=== PATIENT | male | born 1990 | race African-American/Black ===

== ENCOUNTER 2020-04-12 10:32 | Inpatient (IN) | payer OTHER, SELFPAY ==
[2020-04-12] VITALS (7 sets, daily range): BP systolic 137–154; BP diastolic 71–86; PULSE 66–87; RESP 14–17; TEMP 36.7–37; O2SAT 97–100; BMI 33.0
--- NOTE | 2020-04-12 11:46 | ED_ITS ---
HPI - Dizziness General Chief Complaint: Dizziness Stated Complaint: dizziness Time Seen by Provider: 04/12/20 11:41 History of Present Illness HPI Narrative: Patient complains of dizziness, feeling slightly off balance for several days, and feeling right-sided numbness and tingling for over a week, and double vision and feeling off balance for 3 days as well as feeling some weakness in his right arm for 2-3 days The double vision is relieved by closing 1 eye right arm is not as strong as normal no fever no chills The feeling he describes as dizziness is a sense of movement which he says is similar possibly to a prior episode of vertigo many many years ago as a teenager, he feels like his balance is not quite right The right arm weakness 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 and usually uses that is his dominant arm and it is hard to hold things and lift things with his right arm The tingling and numbness started many weeks ago on the left side with his left foot and went up his left leg and then went away he never saw a doctor about this and then things were normal and then about 10 days to 2 weeks ago he started after tingling initially in his right foot and now he has tingling and a numb feeling in both right foot and right arm and for past several days he feels his right arm is weaker than normal He has also noted over the last several days that his blood pressure has been elevated over 160 He has had no headache, no difficulty speaking or understanding, no fever no chills no vomiting no nausea Related Data Home Medications Medication Instructions Recorded Confirmed No Known Home Meds 04/12/20 04/12/20 Allergies Allergy/AdvReac Type Severity Reaction Status Date / Time No Known Allergies Allergy Verified 04/12/20 11:44 Review of Systems Review of Systems: Positive for dizziness double vision and numbness Negatives are no fever no chills no headache no chest pain no palpitations no nausea no vomiting no diarrhea no anorexia no rash no confusion no urinary symptoms Yes all other systems are reviewed and are negative [facility] Past Medical History Attestation statement: The following information was validated with the patient. 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 Social History Social History Alcohol intake: never Smoking Status: Never smoker Use of substances other than those prescribed or required for medical reasons: No Advance Directives: No Advance Directives Information Provided: No Physical Exam Vital Signs: Vital Signs: Last Vital Signs Temp 98.1 F 04/12/20 10:37 Pulse 68 04/12/20 14:28 Resp 17 04/12/20 14:28 BP 152/86 H 04/12/20 14:28 Pulse Ox 98 04/12/20 14:28 Body Mass Index 33.0 Patient is A&O x3, no acute distress cooperative and comp Head is normocephalic atraumatic, the ears are clear and normal tympanic membranes The pupils are equal round and reactive to light Extraocular motions are intact, when vision is checked with both eyes he sees 2 fingers but when it was checked with either eye individually he only sees 1 finger Pharynx is clear well-hydrated The neck is supple Chest is clear to auscultation bilaterally, no respiratory distress The heart no murmur The abdomen is soft nontender Extremities full range of motion x4 Neuro exam patient's speech and interaction is normal, I did not detect any gaze palsy or nystagmus, finger to nose was normal, gait was away wide gait and slow but he was able to ambulate Motor his arm strength on the right arm when flexing the biceps up was 4/5 as compared to the left which was 5/5 of her motor strength exam was normal, sen sation was intact and symmetrical on both sides Course Course Course Narrative: Case was discussed with neurologist who was concerned for MS and advised imaging of both head and neck with and without IV contrast He had on his exam detected a gaze palsy in the left eye on out romano gaze Patient was admitted to medical service for further evaluation Head CT without contrast was negative, and MRIs were pending with the medical service and will be followed after admission MDM - Dizziness Lab Data Attestation: I reviewed the patient's lab results. Result diagrams: 04/12/20 12:31 04/12/20 12:31 Labs: Lab Results 04/12/20 04/12/20 04/12/20 Range/Units 11:53 12:31 12:31 WBC 5.4 (4.8-10.8) X10*3/uL RBC 4.51 L (4.60-5.80) X10*6/uL Hgb 14.0 (14.0-18.0) g/dl Hct 41.3 L (42-52) % MCV 91.6 (80-98) fL MCH 31.0 (27.0-33.0) pg MCHC 33.9 (31.0-36.0) g/dl RDW 13.0 (11.0-16.0) % Plt Count 176 (160-400) X10*3/uL MPV 10.5 (9.4-12.4) fL Immature Gran % (Auto) 0.2 (0.0-0.4) % Neut % (Auto) 56.1 (45-73) % Lymph % (Auto) 32.5 (20-40) % [place] % (Auto) 9.7 (2-11) % Eos % (Auto) 1.1 (0-4) % Baso % (Auto) 0.4 (0-2) % Lymph # (Auto) 1.7 (1.2-4.9) X10*3/uL [place] # (Auto) 0.5 (0.1-1.2) X10*3/uL Eos # (Auto) 0.1 (0.0-0.4) X10*3/uL Baso # (Auto) 0.0 (0.0-0.2) X10*3/uL Abs Immat Gran (auto) 0.01 (0.00-0.03) X10*3/uL Absolute Neuts (auto) 3.0 (2.0-8.3) X10*3/uL Absolute Nucleated RBC 0.000 (0.0-0.012) X10*3/uL Nucleated RBC % (auto) 0.0 (0.0-0.2) /100WBC PT 13.4 H (10.8-13.0) SEC INR 1.1 (0.9-1.1) Sodium (135-145) mmol/L Potassium (3.3-5.1) mmol/l Chloride (96-108) mmol/L Carbon Dioxide (22-29) mmol/L Anion Gap (12-20) BUN (9-16) mg/dL Creatinine (0.5-1.4) mg/dL Estim Creat Clear Calc Estimated GFR POC Glucose 108 (60-115) mg/dL Random Glucose (60-115) mg/dL Calcium (8.4-10.2) mg/dL Total Bilirubin (0.0-1.0) mg/dL AST (5-37) U/L ALT (0-40) U/L Alkaline Phosphatase (39-117) U/L Total Protein (6.5-8.0) g/dL Albumin (3.5-5.0) g/dL 12/18/20 Range/Units 12:31 WBC (4.8-10.8) X10*3/uL RBC (4.60-5.80) X10*6/uL Hgb (14.0-18.0) g/dl Hct (42-52) % MCV (80-98) fL MCH (27.0-33.0) pg MCHC (31.0-36.0) g/dl RDW (11.0-16.0) % Plt Count (160-400) X10*3/uL MPV (9.4-12.4) fL Immature Gran % (Auto) (0.0-0.4) % Neut % (Auto) (45-73) % Lymph % (Auto) (20-40) % [place] % (Auto) (2-11) % Eos % (Auto) (0-4) % Baso % (Auto) (0-2) % Lymph # (Auto) (1.2-4.9) X10*3/uL [place] # (Auto) (0.1-1.2) X10*3/uL Eos # (Auto) (0.0-0.4) X10*3/uL Baso # (Auto) (0.0-0.2) X10*3/uL Abs Immat Gran (auto) (0.00-0.03) X10*3/uL Absolute Neuts (auto) (2.0-8.3) X10*3/uL Absolute Nucleated RBC (0.0-0.012) X10*3/uL Nucleated RBC % (auto) (0.0-0.2) /100WBC PT (10.8-13.0) SEC INR (0.9-1.1) Sodium 139 (135-145) mmol/L Potassium 3.9 (3.3-5.1) mmol/l Chloride 105 (96-108) mmol/L Carbon Dioxide 26 (22-29) mmol/L Anion Gap 12 (12-20) BUN 16 (9-16) mg/dL Creatinine 1.04 (0.5-1.4) mg/dL Estim Creat Clear Calc 124.2 Estimated GFR > 60 POC Glucose (60-115) mg/dL Random Glucose 77 (60-115) mg/dL Calcium 9.4 (8.4-10.2) mg/dL Total Bilirubin 0.8 (0.0-1.0) mg/dL AST 19 (5-37) U/L ALT 21 (0-40) U/L Alkaline Phosphatase 107 (39-117) U/L Total Protein 7.7 (6.5-8.0) g/dL Albumin 4.5 (3.5-5.0) g/dL ECG Data Interpretation: EKG was normal sinus rhythm with a rate of 74 [place] was normal QRS was 100 QT was normal, no acute ST changes no acute ischemic changes Pacemaker model: ECG was normal sinus rhythm Discharge Plan Discharge Clinical Impression: Dizziness, Double vision Patient Disposition: Admitted As Inpatient
[2020-04-12 11:55] LABS: Glucose, Whole Blood 108 mg/dL (60-115)
--- NOTE | 2020-04-12 12:20 | ECG_ITS ---
Test Reason : WEAKNESS Blood Pressure : / mmHG Vent. Rate : 074 BPM Atrial Rate : 074 BPM P-R Int : 194 ms QRS Dur : 100 ms QT Int : 366 ms P-R-T Axes : 017 083 033 degrees QTc Int : 406 ms Normal sinus rhythm Normal ECG No previous ECGs available Referred By: Jamil Boateng Electronically Signed By:Torsten Srivastava
--- NOTE | 2020-04-12 12:20 | CT_ITS ---
EXAMINATION: CT HEAD WITHOUT CONTRAST CLINICAL INFORMATION: Dizziness COMPARISON: None TECHNIQUE: Contiguous axial imaging was performed from the skull base to vertex without intravenous administration of contrast. This CT examination was performed using dose optimization techniques as appropriate, variously including the following: *Automated exposure control *Adjustment of mA and/or kV according to patient size (this includes techniques or standardized protocols for targeted exams where dose is matched to indication/reason for exam; i.e. extremities or head) *Use of iterative reconstruction technique DLP: 740 mGy-cm FINDINGS: There is no evidence of acute intracranial hemorrhage or territorial infarction. No abnormal mass effect or midline shift is seen. Cam to white matter differentiation is well preserved. No extra-axial fluid collections are identified. The ventricles are normal in size. There is no abnormal attenuation within the brain parenchyma. The osseous structures and soft tissues are normal. The mastoid air cells and visualized portions of the paranasal sinuses are well aerated. CT/CT head/brain wo con IMPRESSION: Unremarkable exam.
[2020-04-12 12:49] LABS: MANUAL DIFF FLAG NO
[2020-04-12 12:54] LABS: Basophils Percent Auto 0.4 % (0-2); Eosinophils Absolute Auto 0.1 X10*3/uL (0.0-0.4); Eosinophils Percent Auto 1.1 % (0-4); Hematocrit 41.3 % (42-52); Imm Gran Abs Auto 0.01 X10*3/uL (0.00-0.03); Imm Gran Pct Auto 0.2 % (0.0-0.4); Lymphocytes Absolute Auto 1.7 X10*3/uL (1.2-4.9); Lymphocytes Percent Auto 32.5 % (20-40); Mean Corpuscular HGB Conc 33.9 g/dl (31.0-36.0); Mean Corpuscular Volume 91.6 fL (80-98); Mean Platelet Volume 10.5 fL (9.4-12.4); Monocytes Absolute Auto 0.5 X10*3/uL (0.1-1.2); Monocytes Percent Auto 9.7 % (2-11); Neutrophils Percent Auto 56.1 % (45-73); Platelet Count 176 X10*3/uL (160-400); Red Blood Count 4.51 X10*6/uL (4.60-5.80); White Blood Count 5.4 X10*3/uL (4.8-10.8)
[2020-04-12 13:08] LABS: INTERNATIONAL NORM RATIO 1.1 (0.9-1.1); Prothrombin Time 13.4 SEC (10.8-13.0)
[2020-04-12 13:13] LABS: Alanine Aminotransferase 21 U/L (0-40); Albumin Level 4.5 g/dL (3.5-5.0); Alkaline Phosphatase 107 U/L (39-117); Anion Gap 12 (12-20); Aspartate Amino Transferase 19 U/L (5-37); Bilirubin Total 0.8 mg/dL (0.0-1.0); Blood Urea Nitrogen 16 mg/dL (9-16); Calcium 9.4 mg/dL (8.4-10.2); Carbon Dioxide 26 mmol/L (22-29); Chloride 105 mmol/L (96-108); Creatinine Clr Calc Pharmacy 124.2; Estimated Glomerular Filt Rate > 60; Glucose Random 77 mg/dL (60-115); Potassium 3.9 mmol/l (3.3-5.1); Sodium 139 mmol/L (135-145); Total Protein 7.7 g/dL (6.5-8.0)
--- NOTE | 2020-04-12 14:12 | MR_ITS ---
EXAMINATION: MR BRAIN AND CERVICAL SPINE WITHOUT AND WITH CONTRAST CLINICAL INFORMATION: Double vision. Off balance. Right arm weakness. COMPARISON: Head CT performed earlier today. TECHNIQUE: Multiplanar multisequence MRI of the brain and cervical spine was performed without and with contrast. A total of 10 mL Gadavist was intravenously administered. FINDINGS: Brain MRI: A small focus of diffusion restriction is seen within the left paramedian lorrie involving the basis pontis and the anterior aspect of the tegmentum. No additional diffusion restriction is seen elsewhere in the brain parenchyma. No additional acute or chronic infarction is seen. There is no hemorrhage on the GRE sequence. Multiple foci of ovoid T2 hyperintensity are seen within the periventricular and deep cerebral white matter and along the callosal septal interface typical of demyelinating plaques. T2 hyperintense plaques are also present within the right aspect of the brachium pontis and left cerebellar deep white matter. No abnormal intracranial enhancement is seen. The ventricles are normal in size and configuration without hydrocephalus or unexpected volume loss. The major arterial flow voids are preserved at the skull base. The orbital contents are unremarkable. Cervical spine MRI: There is a 1.2 cm focus of mildly expansile T2 hyperintense abnormality within the cervical cord centered at the C2-C3 level and demonstrates avid peripheral enhancement. An additional demyelinating plaque is seen within the left posterolateral cord at the C6-C7 level. The cervical vertebral bodies maintain normal heights and alignment. No disc height loss is seen. C3-C4: Left paracentral/foraminal extrusion causing compression of the left aspect of the ventral cord. No significant neural foraminal stenosis. No additional significant spondylosis is noted. The extraspinal soft tissues are within normal limits. MR/MR head/brain wo/w con IMPRESSION: Brain MRI: Multiple foci of T2 hyperintensity are seen within the supratentorial and infratentorial white matter compatible with demyelinating plaques. A focus of restricted diffusion is seen within the left paramedian lorrie. This finding could represent an acute/active demyelinating plaque however no associated enhancement is seen. A param[facility] territory infarction is also in the differential and difficult to exclude on an imaging basis. Cervical spine MRI: An expansile T2 hyperintense enhancing plaque is seen in the cervical cord at the C2-C3 level compatible with acute/active demyelination. A small nonenhancing plaque is seen in the left dorsal lateral cord at the C6-C7 level. At C3-C4 there is left paracentral/foraminal extrusion causing compression of the left aspect of the ventral cord but without definite intramedullary edema. This critical result was discussed with GEORGIA Medeiros on 04/12/2020 7:32 PM, and it was ascertained that the content and urgency of the report was understood at the time of direct communication.
--- NOTE | 2020-04-12 14:23 | PC.NURSE ---
MRI SCREENING FORM CONSENT FAXED TO MRI.
--- NOTE | 2020-04-12 15:50 | MR_ITS ---
EXAMINATION: MR BRAIN AND CERVICAL SPINE WITHOUT AND WITH CONTRAST CLINICAL INFORMATION: Double vision. Off balance. Right arm weakness. COMPARISON: Head CT performed earlier today. TECHNIQUE: Multiplanar multisequence MRI of the brain and cervical spine was performed without and with contrast. A total of 10 mL Gadavist was intravenously administered. FINDINGS: Brain MRI: A small focus of diffusion restriction is seen within the left paramedian lorrie involving the basis pontis and the anterior aspect of the tegmentum. No additional diffusion restriction is seen elsewhere in the brain parenchyma. No additional acute or chronic infarction is seen. There is no hemorrhage on the GRE sequence. Multiple foci of ovoid T2 hyperintensity are seen within the periventricular and deep cerebral white matter and along the callosal septal interface typical of demyelinating plaques. T2 hyperintense plaques are also present within the right aspect of the brachium pontis and left cerebellar deep white matter. No abnormal intracranial enhancement is seen. The ventricles are normal in size and configuration without hydrocephalus or unexpected volume loss. The major arterial flow voids are preserved at the skull base. The orbital contents are unremarkable. Cervical spine MRI: There is a 1.2 cm focus of mildly expansile T2 hyperintense abnormality within the cervical cord centered at the C2-C3 level and demonstrates avid peripheral enhancement. An additional demyelinating plaque is seen within the left posterolateral cord at the C6-C7 level. The cervical vertebral bodies maintain normal heights and alignment. No disc height loss is seen. C3-C4: Left paracentral/foraminal extrusion causing compression of the left aspect of the ventral cord. No significant neural foraminal stenosis. No additional significant spondylosis is noted. The extraspinal soft tissues are within normal limits. MR/MR cervical spine wo/w con IMPRESSION: Brain MRI: Multiple foci of T2 hyperintensity are seen within the supratentorial and infratentorial white matter compatible with demyelinating plaques. A focus of restricted diffusion is seen within the left paramedian lorrie. This finding could represent an acute/active demyelinating plaque however no associated enhancement is seen. A paramedian [facility] nurse practitioner territory infarction is also in the differential and difficult to exclude on an imaging basis. Cervical spine MRI: An expansile T2 hyperintense enhancing plaque is seen in the cervical cord at the C2-C3 level compatible with acute/active demyelination. A small nonenhancing plaque is seen in the left dorsal lateral cord at the C6-C7 level. At C3-C4 there is left paracentral/foraminal extrusion causing compression of the left aspect of the ventral cord but without definite intramedullary edema. This critical result was discussed with GEORGIA Medeiros on 04/12/2020 7:32 PM, and it was ascertained that the content and urgency of the report was understood at the time of direct communication.
--- NOTE | 2020-04-12 16:04 | PC.NURSE ---
DR MCDUFFIE AT BEDSIDE. PT AWARE OF PLAN FOR ADMISSION AND MRI TESTING TO RULE OUT MS.
--- NOTE | 2020-04-12 16:17 | PM.NEUROCN ---
History of Present Illness Data of Consult Service Date: 04/12/20 Primary Care Provider: None Physician HPI Reason for consult: Numbness in the lower part of the body starting 2 weeks ago This is a previously healthy 29-year-old man who started noticing some numbness starting the left foot about 2 weeks ago that gradually got worse and progressed up the left upper extremity up to the groin and then also started a few days later in the right leg and now he has numbness as if he is asleep till his abdomen around the bellybutton. In the last week he is also noted that his right hand is numb and he is having trouble with fine motor skills in the right hand. In the last 2 days he is noted some double vision on looking to the left and some balance problems. No bladder control problems. When he was a teenager he had what was diagnosed as vertigo of for a few days. Review of Systems Eyes: Eyes: Reports no additional eye complaints ENT: Reports system reviewed and no additional complaints, except as documented and Reports Normal hearing present Cardiovascular: Cardiovascular: Reports no additional cardiovascular complaints Respiratory: Respiratory: Reports no additional respiratory complaints Gastrointestinal: Gastrointestinal: Reports no additional gastrointestinal complaints Genitourinary: Genitourinary: Reports no additional male genitourinary complaints Musculoskeletal: Musculoskeletal: Reports no additional musculoskeletal complaints Integumentary/Breasts: Skin/Breast: Reports system reviewed and no additional complaints, except as docu Neurologic: Reports as per HPI and Reports Normal hearing present Psychiatric: Psychiatric: Reports as per HPI Endocrine: Endocrine: Reports no additional endocrine complaints Hematologic/Lymphatic: Hematologic/Lymphatic: Reports no additional hematologic/lymphatic complaints Allergic/Immunologic: Allergic/Immunologic: Reports no additional allergic/immunologic complaints [facility] Social History Social History Alcohol intake: never Smoking Status: Never smoker Use of substances other than those prescribed or required for medical reasons: No Advance Directives: No Advance Directives Information Provided: No Meds Allergies Allergy/AdvReac Type Severity Reaction Status Date / Time No Known Allergies Allergy Verified 04/12/20 11:44 Home Medications Medication Instructions Recorded Confirmed Type No Known Home Meds 04/12/20 04/12/20 History Physical Exam Vital Signs: Vital Signs: Last Vital Signs Temp 98.1 F 04/12/20 10:37 Pulse 68 04/12/20 14:28 Resp 17 04/12/20 14:28 BP 152/86 H 04/12/20 14:28 Pulse Ox 98 04/12/20 14:28 Body Mass Index 33.0 Const: General: cooperative, comfortable, no acute distress, well developed, alert and awake Nutritional Appearance: well nourished Orientation/consciousness: oriented to person, oriented to place and oriented to time Limitations: no limitations HENMT: Head: Yes normal to inspection, Yes normocephalic and Yes atraumatic Ears: hearing grossly normal bilaterally General nose exam: Normal external nose present Face and sinus: Yes normal facial exam Mouth: Normal oral and palatal mucosa present Eyes: General: appearance normal, both eyes and all related structures Visual Patton: normal visual patton by confrontation Alignment and Position: alignment normal Periorbital: periorbital findings normal Eyelids: Yes eyelids normal Conjunctivae: conjunctivae normal Sclerae: sclerae normal Corneas: corneas normal Pupils: Equal, round and reactive pupils present and Pupil accommodation reflex normal EOM: EOMs intact bilaterally Direct Ophthalmoscopy: normal light reflex Neck: Neck: Yes normal visual inspection, Yes full ROM and Yes no meningeal signs Thyroid: Thyroid normal Carotids: normal carotid upstroke and bounding pulses Chest: Chest palpation & inspection: normal inspection of the chest Resp: Effort & Inspection: normal respiratory effort Auscultation: clear to auscultation bilaterally Cardio: Rate: regular rate Rhythm: regular rhythm Heart sounds: S1 normal heart sound present and S2 normal heart sound present Peripheral pulses: Peripheral pulses 2+ throughout GI: Inspection: Yes normal to inspection Percussion: Yes normal to percussion Auscultation: normal bowel sounds Rectal Exam - Male: Yes deferred Back/Spine/Pelvis: Cervical Spine: normal cervical lordosis and cervical ROM normal Thoracic/Lumbar Spine: thoracic and lumbar spine normal to inspection Skin: General skin exam: no rashes or lesions noted Neuro: Other: He has diplopia on left lateral gaze with partial internuclear ophthalmoplegia with restriction of left eye abduction. There is slight pronation drift of the right upper extremity with weakness of the right deltoid. There is slight decrease in finger tapping frequency with the right hand. He has slight right-sided hyperreflexia General: oriented to person, oriented to place, oriented to time, gait normal, tone normal, moves all extremities, Normal light touch and pain sensation, no meningeal signs, no focal motor deficits, CN's II-XI intact bilaterally, normal sensation to monofilament and deep tendon reflexes 2+ bilaterally Cranial nerves: Yes Equal, round and reactive pupils present, Yes Nystagmus not present, Yes Normal facial strength present, Yes Midline tongue present, Yes Normal gag reflex present, Yes Symmetric palate elevation present, Yes Normal hearing present and Yes Ability to bilaterally rotate head present Cognition (Neuro): normal cognition Speech: Other speech findings present (Neuro) Gait exam (Neuro): Normal gait present Motor exam (neuro): no tremor noted, no asterixis, Motor fasciculations not present, Normal motor muscle tone present throughout and Motor abnormalities not present Sensory Exam: Bilaterally intact graphesthesia Deep tendon reflexes (DTR's): Right triceps reflex intensity grade: 2+, Left triceps reflex intensity grade: 2+, Rt Biceps (C5, C6): 2+, Left biceps reflex intensity grade: 1+, Right brachioradialis reflex intensity grade: 2+, Left brachioradialis reflex intensity grade: 1+, Right patellar reflex intensity grade: 2+, Left patellar reflex intensity grade: 2+, Right ankle reflex intensity grade: 2+ and Left ankle reflex intensity grade: 2+ Plantar Reflex Responses: downgoing: right, left and bilateral Coordination: [id number] test normal, [id number] test normal, tandem gait normal and Romberg test negative Pupils: Normal pupillary reactivity/response: bilateral Extrem: General: Yes normal to inspection, Yes normal exam except as noted and Yes no pedal edema Psych: Appearance: grossly normal Mental Status: mental status grossly normal Speech and movement: Normal speech and movement present and Clear speech present Affect: normal affect Attitude: cooperative Thought process: Normal thought process present Results Labs CBC & Chem 7: 18 12:31 1820 12:31 Labs: Short CBC 04/12/20 Range/Units 12:31 WBC 5.4 (4.8-10.8) X10*3/uL Hgb 14.0 (14.0-18.0) g/dl Hct 41.3 L (42-52) % Plt Count 176 (160-400) X10*3/uL BMP 18 12:31 Sodium 139 Potassium 3.9 Chloride 105 Carbon Dioxide 26 BUN 16 Creatinine 1.04 Calcium 9.4 Liver Function 04/12/20 Range/Units 12:31 Total Bilirubin 0.8 (0.0-1.0) mg/dL AST 19 (5-37) U/L ALT 21 (0-40) U/L Alkaline Phosphatase 107 (39-117) U/L Albumin 4.5 (3.5-5.0) g/dL Assessment and Plan (1) Multiple sclerosis of cord: Status: Acute MRI of the brain and cervical spine with and without gadolinium. If positive, start IV Solu-Medrol 1 g a day for 5 days. Further recommendation for disease modifying therapies for MS to follow (2) Multiple sclerosis involving brain stem: Status: Acute
--- NOTE | 2020-04-12 17:28 | PC.NURSE ---
PT IN MRI.
--- NOTE | 2020-04-12 19:02 | PC.NURSE ---
PT STILL IN [facility].
--- NOTE | 2020-04-12 19:25 | PC.NURSE ---
HOSPITALIST AT BEDSIDE FOR ADMISSION.
--- NOTE | 2020-04-12 19:33 | PM.IMHP ---
History of Present Illness Date of Service: 04/12/20 <GEORGIA Hernandez - Last Filed: 04/12/20 19:59> Chief Complaint: Numbness, difficulty ambulating <GEORGIA Hernandez - Last Filed: 04/12/20 19:59> This is a 29-year-old healthy male who presents to the emergency department with multiple complaints. Approximately 3 weeks ago he noticed numbness starting his left leg. This progressively moved up his left extremity to his abdomen. He describes this as a tingling feeling like his extremity is asleep. This progressed to his right upper lower extremity. He reports clumsiness using his right hand. Insert reports double vision when looking to the left side. Due to be numb feeling in his leg he reports difficulty with ambulating. He has never had symptoms similar to this in the past. In the emergency department brain CT was unremarkable. Was evaluated by the neurologist who was concerned for possible multiple sclerosis. An MRI of brain and cervical spine were ordered and results are pending at this time. Patient's lab work was unremarkable. <GEORGIA Hernandez - Last Filed: 04/12/20 19:59> Review of Systems Review of Systems: Yes all other systems are reviewed and are negative <GEORGIA Hernandez Last Filed: 04/12/20 19:59> Constitutional: Constitutional: Denies chills and Denies fever(s) <GEORGIA Hernandez Last Filed: 04/12/20 19:59> ENT: Reports Normal hearing present <GEORGIA Hernandez Last Filed: 04/12/20 19:59> Cardiovascular: Cardiovascular: Denies chest pain <GEORGIA Hernandez Last Filed: 04/12/20 19:59> Respiratory: Respiratory: Denies cough <GEORGIA Hernandez Last Filed: 04/12/20 19:59> Gastrointestinal: Gastrointestinal: Denies abdominal pain <GEORGIA Hernandez Last Filed: 04/12/20 19:59> Neurologic: Reports as per HPI and Reports Normal hearing present <GEORGIA Hernandez Last Filed: 04/12/20 19:59> [facility] Functional capacity: independent ambulation <GEORGIA Hernandez - Last Filed: 04/12/20 19:59> Pertinent family history: No history of multiple sclerosis Mother has history of diabetes <GEORGIA Hernandez - Last Filed: 04/12/20 19:59> Family history: reviewed and not pertinent <GEORGIA Hernandez - Last Filed: 04/12/20 19:59> Surgical History: Surgical History (Updated 04/12/20 @ 19:40 by GEORGIA Hernandez) No history of previous surgery <GEORGIA Hernandez - Last Filed: 04/12/20 19:59> Social History: Social History Alcohol intake: never Smoking Status: Never smoker Use of substances other than those prescribed or required for medical reasons: No Advance Directives: No Advance Directives Information Provided: No <GEORGIA Hernandez - Last Filed: 04/12/20 19:59> Meds Allergies/Adverse reactions: Allergies Allergy/AdvReac Type Severity Reaction Status Date / Time No Known Allergies Allergy Verified 04/12/20 11:44 <GEORGIA Hernandez - Last Filed: 04/12/20 19:59> Home medications: Home Medications Medication Instructions Recorded Confirmed Type No Known Home Meds 04/12/20 04/12/20 History <GEORGIA Hernandez - Last Filed: 04/12/20 19:59> Physical Exam Vital Signs and Narrative: Vital Signs: Last Vital Signs Temp 98.5 F 04/12/20 19:12 Pulse 67 04/12/20 19:12 Resp 17 04/12/20 19:12 BP 141/85 H 04/12/20 19:12 Pulse Ox 100 04/12/20 19:12 Body Mass Index 33.0 <GEORGIA Hernandez - Last Filed: 04/12/20 19:59> Const: Nutritional Appearance: well nourished <GEORGIA Hernandez - Last Filed: 04/12/20 19:59> Orientation/consciousness: patient oriented x3 <GEORGIA Hernandez - Last Filed: 04/12/20 19:59> HENMT: Head: Yes normocephalic and Yes atraumatic <GEORGIA Hernandez - Last Filed: 04/12/20 19:59> Eyes: Sclerae: sclerae normal <GEORGIA Hernandez - Last Filed: 04/12/20 19:59> Pupils: Equal, round and reactive pupils present <GEORGIA Hernandez - Last Filed: 04/12/20 19:59> Chest: Chest palpation & inspection: normal inspection of the chest <GEORGIA Hernandez - Last Filed: 04/12/20 19:59> Resp: Effort & Inspection: normal respiratory effort and no respiratory distress <GEORGIA Hernandez - Last Filed: 04/12/20 19:59> Auscultation: clear to auscultation bilaterally <GEORGIA Hernandez - Last Filed: 04/12/20 19:59> Cardio: Rate: regular rate <GEORGIA Hernandez - Last Filed: 04/12/20 19:59> Rhythm: regular rhythm <GEORGIA Hernandez - Last Filed: 04/12/20 19:59> GI: Palpation (GI): Soft to palpation and nontender <GEORGIA Hernandez - Last Filed: 04/12/20 19:59> Skin: General skin exam: no rashes or lesions noted <GEORGIA Hernandez - Last Filed: 04/12/20 19:59> Neuro: General: patient oriented x3 <GEORGIA Hernandez - Last Filed: 04/12/20 19:59> Cranial nerves: Yes Equal, round and reactive pupils present, Yes Midline tongue present, Yes Normal hearing present and Yes Ability to bilaterally elevate shoulders present <GEORGIA Hernandez - Last Filed: 04/12/20 19:59> Cognition (Neuro): normal cognition <GEORGIA Hernandez - Last Filed: 04/12/20 19:59> Motor exam (neuro): no tremor noted <GEORGIA Hernandez - Last Filed: 04/12/20 19:59> Extrem: General: Yes normal to inspection <GEORGIA Hernandez - Last Filed: 04/12/20 19:59> Results Labs CBC and Chem 7: : 04/12/20 12:31 04/12/20 12:31 <GEORGIA Hernandez - Last Filed: 04/12/20 19:59> Labs: Laboratory Results - last 24 hr 04/12/20 04/12/20 04/12/20 11:53 12:31 12:31 MCV 91.6 MCH 31.0 MCHC 33.9 RDW 13.0 Plt Count 176 MPV 10.5 Immature Gran % (Auto) 0.2 Neut % (Auto) 56.1 Lymph % (Auto) 32.5 [place] % (Auto) 9.7 Eos % (Auto) 1.1 Baso % (Auto) 0.4 Lymph # (Auto) 1.7 [place] # (Auto) 0.5 Eos # (Auto) 0.1 Baso # (Auto) 0.0 Abs Immat Gran (auto) 0.01 Absolute Neuts (auto) 3.0 Absolute Nucleated RBC 0.000 Nucleated RBC % (auto) 0.0 PT 13.4 H INR 1.1 Anion Gap Estim Creat Clear Calc Estimated GFR POC Glucose 108 Random Glucose Calcium Total Bilirubin AST ALT Alkaline Phosphatase Total Protein Albumin 04/12/20 12:31 MCV MCH MCHC RDW Plt Count MPV Immature Gran % (Auto) Neut % (Auto) Lymph % (Auto) [place] % (Auto) Eos % (Auto) Baso % (Auto) Lymph # (Auto) [place] # (Auto) Eos # (Auto) Baso # (Auto) Abs Immat Gran (auto) Absolute Neuts (auto) Absolute Nucleated RBC Nucleated RBC % (auto) PT INR Anion Gap 12 Estim Creat Clear Calc 124.2 Estimated GFR > 60 POC Glucose Random Glucose 77 Calcium 9.4 Total Bilirubin 0.8 AST 19 ALT 21 Alkaline Phosphatase 107 Total Protein 7.7 Albumin 4.5 <GEORGIA Hernandez - Last Filed: 04/12/20 19:59> Imaging Radiologist's Impressions: Impressions Head CT 04/12/20 12:20 IMPRESSION: Unremarkable exam. <GEORGIA Hernandez - Last Filed: 04/12/20 19:59> Assessment and Plan (1) Numbness: Status: Acute <GEORGIA Hernandez - Last Filed: 04/12/20 19:59> This is a 29-year-old healthy male who presents to the emergency department with 3 week history of numbness in bilateral extremities in visual disturbance Numbness Brain CT negative Evaluated by Neurology in the emergency department. Working diagnosis is multiple sclerosis. MRI of head and cervical spine pending. Plan for high dose steroids if +for MS DVT ppx- low risk. early ambulation Code status-full code This case was discussed with Dr. Harrison <GEORGIA Hernandez - Last Filed: 04/12/20 19:59>
[2020-04-12 20:27] LABS: COVID-19 Test Negative (Negative)
[2020-04-12] MEDS: methylPREDNISolone Sod Succ 1,000 MG in 0.9 % Sodium Chloride 50 ML 66 MG IV (21:10)
--- NOTE | 2020-04-12 21:25 | PC.NURSE ---
INSTALLER HELPER APPLIED. NSR 66.
--- NOTE | 2020-04-12 23:24 | PC.NURSE ---
REPORT CALLED TO S3 RN. BED READY.
--- NOTE | 2020-04-13 00:09 | PM.IMHP ---
History of Present Illness Date of Service: 04/13/20 Chief Complaint: Bilateral LE numbness 29 y/o male who presented from home due to Bilateral LE numbness / RUE numbness associated with visual disturbance. Patient to be admitted due to suspected MS per imaging. ROS and PE as per H and P. PMHX: none PSx: none Toxic habits: no hx of alcohol abuse, smoking or IVDA Asssessment/Plan: Continue with IV solumedrol x 5 days Imaging reviewed by Neurology Neurology to follow up in the am Neuro checks Rest of the plan as discussed with GEORGIA Garrido per H and P Review of Systems ENT: Reports Normal hearing present Neurologic: Reports as per HPI and Reports Normal hearing present COUNTS INCLUDE 234 BEDS AT THE [facility] Functional capacity: independent ambulation Family history: reviewed and not pertinent Surgical History (Updated 04/12/20 @ 19:40 by GEORGIA Hernandez) No history of previous surgery Social History Alcohol intake: never Smoking Status: Never smoker Use of substances other than those prescribed or required for medical reasons: No Advance Directives: No Advance Directives Information Provided: No Meds Allergies Allergy/AdvReac Type Severity Reaction Status Date / Time No Known Allergies Allergy Verified 04/12/20 11:44 Home Medications Medication Instructions Recorded Confirmed Type No Known Home Meds 04/12/20 04/12/20 History Physical Exam Vital Signs and Narrative: Vital Signs: Last Vital Signs Temp 98.6 F 04/12/20 22:00 Pulse 67 04/12/20 23:46 Resp 16 04/12/20 23:46 BP 144/84 H 04/12/20 23:46 Pulse Ox 97 04/12/20 23:46 Body Mass Index 33.0 Neuro: Cranial nerves: Yes Normal hearing present Results Labs CBC and Chem 7: 04/12/20 12:31 04/12/20 12:31 Labs: Laboratory Results - last 24 hr 04/12/20 04/12/20 04/12/20 11:53 12:31 12:31 MCV 91.6 MCH 31.0 MCHC 33.9 RDW 13.0 Plt Count 176 MPV 10.5 Immature Gran % (Auto) 0.2 Neut % (Auto) 56.1 Lymph % (Auto) 32.5 [place] % (Auto) 9.7 Eos % (Auto) 1.1 Baso % (Auto) 0.4 Lymph # (Auto) 1.7 [place] # (Auto) 0.5 Eos # (Auto) 0.1 Baso # (Auto) 0.0 Abs Immat Gran (auto) 0.01 Absolute Neuts (auto) 3.0 Absolute Nucleated RBC 0.000 Nucleated RBC % (auto) 0.0 PT 13.4 H INR 1.1 Anion Gap Estim Creat Clear Calc Estimated GFR POC Glucose 108 Random Glucose Calcium Total Bilirubin AST ALT Alkaline Phosphatase Total Protein Albumin COVID-19 (CRISTOPHER) COVID-19 Clin Com 04/12/20 04/12/20 12:31 19:54 MCV MCH MCHC RDW Plt Count MPV Immature Gran % (Auto) Neut % (Auto) Lymph % (Auto) [place] % (Auto) Eos % (Auto) Baso % (Auto) Lymph # (Auto) [place] # (Auto) Eos # (Auto) Baso # (Auto) Abs Immat Gran (auto) Absolute Neuts (auto) Absolute Nucleated RBC Nucleated RBC % (auto) PT INR Anion Gap 12 Estim Creat Clear Calc 124.2 Estimated GFR > 60 POC Glucose Random Glucose 77 Calcium 9.4 Total Bilirubin 0.8 AST 19 ALT 21 Alkaline Phosphatase 107 Total Protein 7.7 Albumin 4.5 COVID-19 (CRISTOPHER) Negative COVID-19 Clin Com See Note Imaging Radiologist's Impressions: Impressions Head CT 04/12/20 12:20 IMPRESSION: Unremarkable exam. Brain MRI 04/12/20 14:12 IMPRESSION: Brain MRI: Multiple foci of T2 hyperintensity are seen within the supratentorial and infratentorial white matter compatible with demyelinating plaques. A focus of restricted diffusion is seen within the left paramedian lorrie. This finding could represent an acute/active demyelinating plaque however no associated enhancement is seen. 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 Cervical spine MRI: An expansile T2 hyperintense enhancing plaque is seen in the cervical cord at the C2-C3 level compatible with acute/active demyelination. A small nonenhancing plaque is seen in the left dorsal lateral cord at the C6-C7 level. At C3-C4 there is left paracentral/foraminal extrusion causing compression of the left aspect of the ventral cord but without definite intramedullary edema. This critical result was discussed with GEORGIA Medeiros on 04/12/2020 7:32 PM, and it was ascertained that the content and urgency of the report was understood at the time of direct communication. Cervical Spine MRI 04/12/20 15:50
[2020-04-13] MEDS: 0.9 % Sodium Chloride Flush 3 ML SYRINGE IVFLUSH ×4 (00:10→23:29)
[2020-04-13 03:49] VITALS: BP 111/48; PULSE 73; RESP 14; O2SAT 98
[2020-04-13 07:28] VITALS: BP 114/49; PULSE 76; RESP 20; TEMP 36.6; O2SAT 98
--- NOTE | 2020-04-13 09:22 | HO.PM.IMPN ---
Subjective Subjective Date of Service: 04/13/20 Interval History: seen and examined this AM reports no major changes in neuro symptoms as of yet denies any new deficits ROS General - no fevers or chills Cardiovascular - no chest pain Respiratory - no shortness of breath or cough Abdominal- no abdominal pain, nausea, vomiting, diarrhea Neuro - double vision when looking left, RLE parasthesias Physical Exam Vital Signs: Vital Signs: Last Vital Signs Temp 97.9 F 04/13/20 07:28 Pulse 76 04/13/20 07:28 Resp 20 04/13/20 07:28 BP 114/49 L 04/13/20 07:28 Pulse Ox 98 04/13/20 07:28 Body Mass Index 33.0 Const: Other: General - no acute distress, appears comfortable Cardiovascular - regular rate and rhythm, S1-S2 Lungs - normal respiratory effort, clear to auscultation bilaterally, no wheezing Abdomen - soft, nontender, no rebound or guarding Extremities - no edema bilaterally Neuro - AAOx3 Objective Data Current Medications Generic Name Dose Route Start Last Admin Trade Name Sherice PRN Reason Stop Dose Admin Acetaminophen 650 mg 04/12/20 23:44 Acetaminophen 325 Mg Tablet PO Q6H PRN Pain, Mild (Pain Scale 1-3) Docusate Sodium 100 mg 04/12/20 23:44 Docusate Sodium 100 Mg Capsule PO DAILY PRN Constipation Methylprednisolone Sodium 66 mls @ 66 mls/hr 04/12/20 20:00 04/12/20 22:51 Succinate 1,000 mg/ Sodium IV 04/16/20 20:59 Infused Chloride Q24H LAURYN Infusion Ondansetron HCl 4 mg 04/12/20 23:44 Ondansetron Hcl 4 Mg/2 Ml Vial IVPUSH Q8H PRN Nausea and Vomiting Sodium Chloride 3 ml 04/13/20 00:00 04/13/20 08:09 0.9 % Sodium Chloride Flush 3 Ml Syringe IVFLUSH 3 ml QSHIFT [facility] Administration Labs CBC & Chem 7: 04/12/20 12:31 04/12/20 12:31 Assessment and Plan (1) Numbness: Status: Acute Assessment and Plan: This is a 29-year-old male with no previous medical history who presents to the hospital with progressive neurological symptoms and is diagnosed with multiple sclerosis. He is admitted for systemic steroids. 1. Multiple Sclerosis, [facility]2 Neurology on board Full Code DVT pptx, low risk -- early ambulation
--- NOTE | 2020-04-13 09:30 | MHC.CM.PN ---
PATIENT IS INDEPENDENT WITH HIS ADLS. NO DME OR VNA SERVICES. HE HAS A NEW PROVIDER APPOINTMENT SCHEDULED FOR March IN [facility] UPDATE MADE IN QUICK TASK OF [employer]. CASE MANAGEMENT FOLLOWING FOR ANY DISCHARGE NEEDS.
[2020-04-13 11:20] VITALS: BP 145/70; PULSE 78; RESP 20; TEMP 36.4; O2SAT 98
[2020-04-13] MEDS: Acetaminophen 325 MG TABLET 650 MG PO (11:56)
--- NOTE | 2020-04-13 14:05 | P.PNNE_ITS ---
Subjective Subjective Date of Service: 04/13/20 Interval History: No change in diplopia and numbness Physical Exam Vital Signs: Vital Signs: Last Vital Signs Temp 97.6 F 04/13/20 11:20 Pulse 78 04/13/20 11:20 Resp 20 04/13/20 11:20 BP 145/70 H 04/13/20 11:20 Pulse Ox 98 04/13/20 11:20 Body Mass Index 33.0 Const: General: cooperative, comfortable, no acute distress, well developed, alert and awake Nutritional Appearance: well nourished Orientation/consciousness: oriented to person, oriented to place and oriented to time Limitations: no limitations HENMT: Head: Yes normal to inspection, Yes normocephalic and Yes atraumatic Ears: hearing grossly normal bilaterally General nose exam: Normal external nose present Face and sinus: Yes normal facial exam Mouth: Normal oral and palatal mucosa present Eyes: General: appearance normal, both eyes and all related structures Visual Patton: normal visual patton by confrontation Alignment and Position: alignment normal Periorbital: periorbital findings normal Eyelids: Yes eyelids normal Conjunctivae: conjunctivae normal Sclerae: sclerae normal Corneas: corneas normal Pupils: Equal, round and reactive pupils present and Pupil accommodation reflex normal EOM: EOMs intact bilaterally Direct Ophthalmoscopy: normal light reflex Neck: Neck: Yes normal visual inspection, Yes full ROM and Yes no meningeal signs Thyroid: Thyroid normal Carotids: normal carotid upstroke and bounding pulses Chest: Chest palpation & inspection: normal inspection of the chest Resp: Effort & Inspection: normal respiratory effort Auscultation: clear to auscultation bilaterally Cardio: Rate: regular rate Rhythm: regular rhythm Heart sounds: S1 normal heart sound present and S2 normal heart sound present Peripheral pul ses: Peripheral pulses 2+ throughout GI: Inspection: Yes normal to inspection Percussion: Yes normal to percussion Auscultation: normal bowel sounds Rectal Exam - Male: Yes deferred Back/Spine/Pelvis: Cervical Spine: normal cervical lordosis and cervical ROM normal Thoracic/Lumbar Spine: thoracic and lumbar spine normal to inspection Skin: General skin exam: no rashes or lesions noted Neuro: General: oriented to person, oriented to place, oriented to time, gait normal, tone normal, moves all extremities, Normal light touch and pain sensation, no meningeal signs, no focal motor deficits, CN's II-XI intact bilaterally, normal sensation to monofilament and deep tendon reflexes 2+ bilate rally Cranial nerves: Yes CN's II-XII intact bilaterally, Yes Equal, round and reactive pupils present, Yes Bilaterally intact EOM present, Yes Nystagmus not present, Yes Normal facial strength present, Yes Midline tongue present, Yes Normal gag reflex present, Yes Symmetric palate elevation present, Yes Normal hearing present and Yes Ability to bilaterally rotate head present Cognition (Neuro): normal cognition Speech: Other speech findings present (Neuro) Ga it exam (Neuro): Normal gait present Motor exam (neuro): 5/5 motor strength present throughout, Pronator motor function not present, no tremor noted, no asterixis, Motor fasciculations not present, Normal motor muscle tone present throughout and Motor abnormalities not present Sensory Exam: Bilaterally intact graphesthesia Deep tendon reflexes (DTR's): Right triceps reflex intensity grade: 2+, Left triceps reflex intensity grade: 2+, Rt Biceps (C5, C6): 2+, Left biceps reflex intensity grade: 2+, Right brachioradialis reflex intensity grade: 2+, Left brachioradialis reflex intensity grade: 2+, Right patellar reflex intensity grade: 2+, Left patellar reflex intensity grade: 2+, Right ankle reflex intensity grade: 2+ and Left ankle reflex intensity grade: 2+ Plantar Reflex Responses: downgoing: right, left and bilateral Coordination: [id number] test normal, [id number] test normal, tandem gait normal and Romberg test negative Pupils: Normal pupillary reactivity/response: bilateral Extrem: General: Yes normal to inspection, Yes normal exam except as noted and Yes no pedal edema Psych: Appearance: grossly normal Mental Status: mental status grossly normal Speech and movement: Normal speech and movement present and Clear speech present Affect: normal affect Attitude: cooperative Thought process: Normal thought process present Objective Data Labs CBC & Chem 7: 04/12/20 12:31 04/12/20 12:31 Labs: Laboratory Results - last 24 hr 04/12/20 19:54 COVID-19 (CRISTOPHER) Negative COVID-19 Clin Com See Note Imaging MRI C-Spine with,w/o cont: My impression: mulyiple C cord lesions largest at C2-3 with enhancement c/w new lesion MRI Brain with, w/o cont: My impression: Multipl ecorpus callosum, wen callosal, periventrical an dsubcortical lesions and right lorrie and medulla with faint enhancement in brain stem and three cerebral lesions c/w active demyelination Progress Note: A&P Assessment and plan (1) Multiple sclerosis involving brain stem: Status: Acute Assessment and Plan: 5 days of IV solumedrol 1gm. Will work on approval for disease modifying therapy on Wednesday thru the office . 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 Fall Risk Details Current Medications: Current Medications Generic Name Dose Route Start Last Admin Trade Name Freq PRN Reason Stop Dose Admin Acetaminophen 650 mg 04/12/20 23:44 04/13/20 11:56 Acetaminophen 325 Mg Tablet PO 650 mg Q6H PRN Administration Pain, Mild (Pain Scale 1-3) Acetaminophen 650 mg 04/13/20 09:27 Acetaminophen 325 Mg Tablet PO Q6H PRN PAINFEV Docusate Sodium 100 mg 04/12/20 23:44 Docusate Sodium 100 Mg Capsule PO DAILY PRN Constipation Methylprednisolone Sodium 66 mls @ 66 mls/hr 04/12/20 20:00 04/12/20 22:51 Succinate 1,000 mg/ Sodium IV 04/16/20 20:59 Infused Chloride Q24H LAURYN Infusion Ondansetron HCl 4 mg 04/12/20 23:44 Ondansetron Hcl 4 Mg/2 Ml Vial IVPUSH Q8H PRN Nausea and Vomiting Sodium Chloride 3 ml 04/13/20 00:00 04/13/20 08:09 0.9 % Sodium Chloride Flush 3 Ml Syringe IVFLUSH 3 ml QSHIFT LAURYN Administration Time Spent With Patient Time: Total time spent is greater than 50% in coordination of care (as documented) at patient's floor/unit and/or counseling patient: Time with patient: 25 - 35 minutes
[2020-04-13 15:25] VITALS: BP 154/83; PULSE 84; RESP 18; TEMP 36.7; O2SAT 97
[2020-04-13] MEDS: oxyCODONE HCl Immed Release 5 MG TABLET PO (16:34)
[2020-04-13 19:37] VITALS: BP 150/81; PULSE 83; RESP 18; TEMP 36.4; O2SAT 97
[2020-04-13] MEDS: methylPREDNISolone Sod Succ 1,000 MG in 0.9 % Sodium Chloride 50 ML 66 MG IV (20:33)
[2020-04-13 23:53] VITALS: BP 133/62; RESP 16; TEMP 36.6; O2SAT 99
[2020-04-14 04:00] VITALS: BP 131/66; PULSE 77; RESP 16; TEMP 37.1; O2SAT 96
[2020-04-14 07:39] VITALS: BP 102/39; PULSE 73; RESP 16; TEMP 36.5; O2SAT 98
--- NOTE | 2020-04-14 08:42 | HO.PM.IMPN ---
Subjective Subjective Date of Service: 04/14/20 Interval History: seen and examined this AM neurological symptoms unchanged reports R hip soreness, not new ROS General - no fevers or chills Cardiovascular - no chest pain Respiratory - no shortness of breath or cough Abdominal- no abdominal pain, nausea, vomiting, diarrhea Neuro - double vision when looking left, RLE parasthesias Physical Exam Vital Signs: Vital Signs: Last Vital Signs Temp 97.7 F 04/14/20 07:39 Pulse 73 04/14/20 07:39 Resp 16 04/14/20 07:39 BP 102/39 L 04/14/20 07:39 Pulse Ox 98 04/14/20 07:39 Body Mass Index 33.0 Const: Other: General - no acute distress, appears comfortable Cardiovascular - regular rate and rhythm, S1-S2 Lungs - normal respiratory effort, clear to auscultation bilaterally, no wheezing Abdomen - soft, nontender, no rebound or guarding Extremities - no edema bilaterally; ROM normal R Hip Neuro - AAOx3 Objective Data Current Medications Generic Name Dose Route Start Last Admin Trade Name Freq PRN Reason Stop Dose Admin Acetaminophen 650 mg 04/12/20 23:44 04/13/20 11:56 Acetaminophen 325 Mg Tablet PO 650 mg Q6H PRN Administration Pain, Mild (Pain Scale 1-3) Acetaminophen 650 mg 04/13/20 09:27 Acetaminophen 325 Mg Tablet PO Q6H PRN PAINFEV Docusate Sodium 100 mg 04/12/20 23:44 Docusate Sodium 100 Mg Capsule PO DAILY PRN Constipation Methylprednisolone Sodium 66 mls @ 66 mls/hr 04/12/20 20:00 04/13/20 21:43 Succinate 1,000 mg/ Sodium IV 04/16/20 20:59 Infused Chloride Q24H LAURYN Infusion Ondansetron HCl 4 mg 04/12/20 23:44 Ondansetron Hcl 4 Mg/2 Ml Vial IVPUSH Q8H PRN Nausea and Vomiting Oxycodone HCl 5 mg 04/13/20 16:11 04/13/20 16:34 Oxycodone Hcl Immed Release 5 Mg Tablet PO 5 mg Q6H PRN Administration Pain, Severe (Pain Scale 7-10) Sodium Chloride 3 ml 04/13/20 00:00 04/13/20 23:29 0.9 % Sodium Chloride Flush 3 Ml Syringe IVFLUSH 3 ml QSHIFT LAURYN Administration Labs CBC & Chem 7: 04/12/20 12:31 04/12/20 12:31 Assessment and Plan (1) Numbness: Status: Acute Assessment and Plan: This is a 29-year-old male with no previous medical history who presents to the hospital with progressive neurological symptoms and is diagnosed with multiple sclerosis. He is admitted for systemic steroids. 1. Multiple Sclerosis, initial presentation Solu-Medrol 1g q24 hours day #3/ Neurology on board - [place] Virus titers, LFTs, Lyme panel to be checked 2. R Hip Pain MSK in nature trial of flexeril Full Code DVT pptx, low risk -- early ambulation
[2020-04-14] MEDS: Cyclobenzaprine HCl 5 MG TABLET PO ×2 (09:14→19:35)
[2020-04-14] MEDS: 0.9 % Sodium Chloride Flush 3 ML SYRINGE IVFLUSH ×3 (09:19→21:07)
[2020-04-14 11:52] VITALS: BP 135/60; PULSE 83; RESP 16; TEMP 36.7; O2SAT 97
[2020-04-14 12:01] LABS: Alanine Aminotransferase 18 U/L (0-40); Albumin Level 4.4 g/dL (3.5-5.0); Alkaline Phosphatase 103 U/L (39-117); Aspartate Amino Transferase 16 U/L (5-37); Bilirubin Direct 0.2 mg/dL (0.0-0.5); Bilirubin Total 0.6 mg/dL (0.0-1.0); Total Protein 7.5 g/dL (6.5-8.0)
[2020-04-14 15:19] VITALS: BP 144/67; PULSE 78; RESP 18; TEMP 36.7; O2SAT 98
[2020-04-14] MEDS: methylPREDNISolone Sod Succ 1,000 MG in 0.9 % Sodium Chloride 50 ML 66 MG IV (18:13)
[2020-04-14 19:19] VITALS: BP 147/69; PULSE 85; RESP 18; TEMP 37.1; O2SAT 100
[2020-04-15] VITALS (7 sets, daily range): BP systolic 130–159; BP diastolic 62–88; PULSE 63–89; RESP 15–20; TEMP 36.3–37; O2SAT 96–99; BMI 33.0
[2020-04-15] MEDS: 0.9 % Sodium Chloride Flush 3 ML SYRINGE IVFLUSH ×2 (08:40→16:10)
--- NOTE | 2020-04-15 09:29 | HO.PM.IMPN ---
Subjective Subjective Date of Service: 04/15/20 Interval History: seen and examined this AM neurological symptoms unchanged R hip pain improved with flexeril ROS General - no fevers or chills Cardiovascular - no chest pain Respiratory - no shortness of breath or cough Abdominal- no abdominal pain, nausea, vomiting, diarrhea Neuro - double vision when looking left, RLE parasthesias Physical Exam Vital Signs: Vital Signs: Last Vital Signs Temp 97.4 F 04/15/20 07:37 Pulse 78 04/15/20 07:37 Resp 15 04/15/20 07:37 BP 150/74 H 04/15/20 07:37 Pulse Ox 98 04/15/20 07:37 Body Mass Index 33.0 Const: Other: General - no acute distress, appears comfortable Cardiovascular - regular rate and rhythm, S1-S2 Lungs - normal respiratory effort, clear to auscultation bilaterally, no wheezing Abdomen - soft, nontender, no rebound or guarding Extremities - no edema bilaterally; ROM normal R Hip Neuro - AAOx3 Objective Data Current Medications Generic Name Dose Route Start Last Admin Trade Name Freq PRN Reason Stop Dose Admin Acetaminophen 650 mg 04/12/20 23:44 04/13/20 11:56 Acetaminophen 325 Mg Tablet PO 650 mg Q6H PRN Administration Pain, Mild (Pain Scale 1-3) Acetaminophen 650 mg 04/13/20 09:27 Acetaminophen 325 Mg Tablet PO Q6H PRN PAINFEV Cyclobenzaprine HCl 5 mg 04/14/20 17:05 04/14/20 19:35 Cyclobenzaprine Hcl 5 Mg Tablet PO 5 mg TID PRN Administration Muscle Spasm Docusate Sodium 100 mg 04/12/20 23:44 Docusate Sodium 100 Mg Capsule PO DAILY PRN Constipation Methylprednisolone Sodium 66 mls @ 66 mls/hr 04/15/20 15:00 Succinate 1,000 mg/ Sodium IV 04/15/20 15:59 Chloride Q24H LAURYN Methylprednisolone Sodium 66 mls @ 66 mls/hr 04/16/20 12:00 Succinate 1,000 mg/ Sodium IV 04/16/20 12:59 Chloride Q24H LAURYN Ondansetron HCl 4 mg 04/12/20 23:44 Ondansetron Hcl 4 Mg/2 Ml Vial IVPUSH Q8H PRN Nausea and Vomiting Oxycodone HCl 5 mg 04/13/20 16:11 04/13/20 16:34 Oxycodone Hcl Immed Release 5 Mg Tablet PO 5 mg Q6H PRN Administration Pain, Severe (Pain Scale 7-10) Sodium Chloride 3 ml 04/13/20 00:00 04/15/20 08:40 0.9 % Sodium Chloride Flush 3 Ml Syringe IVFLUSH 3 ml QSHIFT LAURYN Administration Labs CBC & Chem 7: 04/12/20 12:31 04/12/20 12:31 Assessment and Plan (1) Numbness: Status: Acute Assessment and Plan: This is a 29-year-old male with no previous medical history who presents to the hospital with progressive neurological symptoms and is diagnosed with multiple sclerosis. He is admitted for systemic steroids. 1. Multiple Sclerosis, initial presentation Solu-Medrol 1g q24 hours day #4/5 Neurology on board - OC Virus titers, LFTs, Lyme panel ordered 2. R Hip Pain probably muscle strain, improved with flexeril Full Code DVT pptx, low risk -- early ambulation
[2020-04-15] MEDS: methylPREDNISolone Sod Succ 1,000 MG in 0.9 % Sodium Chloride 50 ML 66 MG IV (12:25)
[2020-04-15 13:17] LABS: Lyme Abs Screen <0.90 index
[2020-04-16] MEDS: 0.9 % Sodium Chloride Flush 3 ML SYRINGE IVFLUSH (00:41)
[2020-04-16 03:36] VITALS: BP 110/69; PULSE 80; RESP 20; TEMP 36.7; O2SAT 99
[2020-04-16 07:58] VITALS: BP 138/76; PULSE 79; RESP 17; TEMP 36.7; O2SAT 97
[2020-04-16 12:00] VITALS: BP 151/80; PULSE 80; RESP 17; TEMP 36.9; O2SAT 96
[2020-04-16] MEDS: methylPREDNISolone Sod Succ 1,000 MG in 0.9 % Sodium Chloride 50 ML 66 MG IV (13:16)
--- NOTE | 2020-04-16 14:28 | PM.DS ---
DS: Providers Provider Date of admission: 04/12/20 19:32 Primary care physician: None Physician Consults: 04/12/20 23:44 Consult to Neurology Routine Consulting Provider: [facility] Reason for consultation: ?ms Has provider been notified: No DS: Diagnosis Discharge Diagnosis (1) Numbness: Status: Acute (2) Dizziness: Status: Acute (3) Double vision: Status: Acute (4) Multiple sclerosis involving brain stem: Status: Acute (5) Multiple sclerosis of cord: Status: Acute DS: Medications Discharge Medications Home Medications: Home Medications Medication Instructions Recorded Confirmed No Known Home Meds 04/12/20 04/12/20 DS: Summary Hospital Course Hospital Course: Admission note HPI 29 y/o male who presented from home due to Bilateral LE numbness / RUE numbness associated with visual disturbance. Patient to be admitted due to suspected MS per imaging. ROS and PE as per H and P. Hospital course The patient was admitted to the hospital for evaluation of numbness, weakness and double vision. With an MRI for the brain was done showing findings suggestive of multiple sclerosis disease. He was evaluated by Neurology who recommended pulse dose of steroids IV. The patient received total of 5 days of IV steroids with fair response as his symptoms. To progress but kept complaining of the numbness and double vision. He was able to ambulate and do exercises on his own. Plan to follow-up with Dr. Wong from Neurology as outpatient for further workup and authorization of multiple sclerosis medications. Time Spent with Patient Time attestation: Total time spent providing and/or coordinating discharge services: Physical Exam Vital Signs: Vital Signs: Last Vital Signs Temp 98.4 F 04/16/20 12:00 Pulse 80 04/16/20 12:00 Resp 17 04/16/20 12:00 BP 151/80 H 04/16/20 12:00 Pulse Ox 96 04/16/20 12:00 Body Mass Index 33.0 Constitutional : Alert, oriented, not in distress Neck : Normal inspection, Supple Cardiovascular : RRR, S1 S2, no lower extremity edema Respiratory : Good bilateral air entry, no crackles, wheezes or rhonchi Gastrointestinal: soft, lax, Normal bowel sounds, Non tender Skin : Warm/Dry, No rash and numbness. Neurological : Alert & oriented x3, No focal deficit but sensation deficit and numbness left upper extremity DS: Data Data Completed and Pending Labs on day of discharge: Brain MRI MPRESSION: Brain MRI: Multiple foci of T2 hyperintensity are seen within the supratentorial and infratentorial white matter compatible with demyelinating plaques. A focus of restricted diffusion is seen within the left paramedian lorrie. This finding could represent an acute/active demyelinating plaque however no associated enhancement is seen. A paramedian [employer] territory infarction is also in the differential and difficult to exclude on an imaging basis. Cervical spine MRI: An expansile T2 hyperintense enhancing plaque is seen in the cervical cord at the C2-C3 level compatible with acute/active demyelination. A small nonenhancing plaque is seen in the left dorsal lateral cord at the C6-C7 level. At C3-C4 there is left paracentral/foraminal extrusion causing compression of the left aspect of the ventral cord but without definite intramedullary edema. Laboratory Last Values WBC 5.4 X10*3/uL (4.8-10.8) 04/12/20 12: RBC 4.51 X10*6/uL (4.60-5.80) L 04/12/20 12:31 Hgb 14.0 g/dl (14.0-18.0) 04/12/20 12:31 Hct 41.3 % (42-52) L 04/12/20 12:31 MCV 91.6 fL (80-98) 04/12/20 12:31 MCH 31.0 pg (27.0-33.0) 04/12/20 12:31 MCHC 33.9 g/dl (31.0-36.0) 04/12/20 12:31 RDW 13.0 % (11.0-16.0) 04/12/20 12:31 Plt Count 176 X10*3/uL (160-400) 04/12/20 12:31 MPV 10.5 fL (9.4-12.4) 04/12/20 12:31 Immature Gran % (Auto) 0.2 % (0.0-0.4) 04/12/20 12:31 Neut % (Auto) 56.1 % (45-73) 04/12/20 12: Lymph % (Auto) 32.5 % (20-40) 04/12/20 12:31 [place] % (Auto) 9.7 % (2-11) 04/12/20 12:31 Eos % (Auto) 1.1 % (0-4) 04/12/20 12:31 Baso % (Auto) 0.4 % (0-2) 04/12/20 12:31 Lymph # (Auto) 1.7 X10*3/uL (1.2-4.9) 04/12/20 12:31 [place] # (Auto) 0.5 X10*3/uL (0.1-1.2) 04/12/20 12:31 Eos # (Auto) 0.1 X10*3/uL (0.0-0.4) 04/12/20 12:31 Baso # (Auto) 0.0 X10*3/uL (0.0-0.2) 04/12/20 12:31 Abs Immat Gran (auto) 0.01 X10*3/uL (0.00-0.03) 04/12/20 12:31 Absolute Neuts (auto) 3.0 X10*3/uL (2.0-8.3) 04/12/20 12:31 Absolute Nucleated RBC 0.000 X10*3/uL (0.0-0.012) 04/12/20 12:31 Nucleated RBC % (auto) 0.0 /100WBC (0.0-0.2) 04/12/20 12:31 PT 13.4 SEC (10.8-13.0) H 04/12/20 12:31 INR 1.1 (0.9-1.1) 04/12/20 12:31 Sodium 139 mmol/L (135-145) 04/12/20 12:31 Potassium 3.9 mmol/l (3.3-5.1) 04/12/20 12:31 Chloride 105 mmol/L (96-108) 04/12/20 12:31 Carbon Dioxide 26 mmol/L (22-29) 04/12/20 12:31 Anion Gap 12 (12-20) 04/12/20 12:31 BUN 16 mg/dL (9-16) 04/12/20 12:31 Creatinine 1.04 mg/dL (0.5-1.4) 04/12/20 12:31 Estim Creat Clear Calc 124.2 04/12/20 12:31 Estimated GFR > 60 04/12/20 12:31 POC Glucose 108 mg/dL (60-115) 04/12/20 11:53 Random Glucose 77 mg/dL (60-115) 04/12/20 12:31 Calcium 9.4 mg/dL (8.4-10.2) 04/12/20 12:31 Total Bilirubin 0.6 mg/dL (0.0-1.0) 04/14/20 11:17 Direct Bilirubin 0.2 mg/dL (0.0-0.5) 04/14/20 11:17 AST 16 U/L (5-37) 04/14/20 11:17 ALT 18 U/L (0-40) 04/14/20 11:17 Alkaline Phosphatase 103 U/L (39-117) 04/14/20 11:17 Total Protein 7.5 g/dL (6.5-8.0) 04/14/20 11:17 Albumin 4.4 g/dL (3.5-5.0) 04/14/20 11:17 Lyme Screen IgG & IgM <0.90 index 04/14/20 11:17 Lyme Progressive Test TNP 04/14/20 11:17 COVID-19 (CRISTOPHER) Negative (Negative) 04/12/20 19:54 COVID-19 Clin Com See Note 04/12/20 19:54 Discharge Plan Discharge Patient Disposition: Home, Self-Care Referrals: Physician,None [Primary Care Provider] - Discharge Medications: No Action No Known Home Meds RF: 0 Discharge Orders: Discharge Order (Routine); Ordered 04/16/20 Ordered By: Dona Frost Diet: advance to usual diet Activity on Discharge: As tolerated Stand Alone Forms: Work/School Release Visit Report Forms: Patient Portal Discharge page Care Plan Goals: Read below Health Concerns: Read below Plan of Treatment: You were admitted to the hospital for evaluation of weakness, numbness and double vision. Images of your brain including MRI was consistent with diagnosis of multiple sclerosis. You were evaluated by neurologist and treated with IV steroids with fair response. You do not need any other medications at time of discharge. You will need to follow-up with Dr. Wong next week for further evaluation and as her eyes a jin of multiple sclerosis medications. Please come back to the hospital for any progressive weakness, numbness or visual changes.
--- NOTE | 2020-04-16 15:02 | MHC.CM.PN ---
Addendum entered by Jayne Kendrick RN 04/16/20 15:13: PT GIVEN INFORMATION ON NATIONAL MS SOCIETY AND LOCAL SUPPORT GROUP AT [facility]. PT GIVEN INFORMATION PAMPHLET ON SECONDARY INSURANCE IN CASE HE IS IN NEED OF FINANCIAL ASSISTANCE. Original Note: PT DISCHARGING HOME SELF-CARE, [facility] TO TRANSPORT. PT HAS ALREADY MADE AN APPT WITH NEUROLOGY, DR CASTRO ON 04/17/20 1:10PM.
[2020-04-16 15:44] VITALS: BP 145/93; PULSE 66; RESP 18; TEMP 36.8; O2SAT 98
[2020-04-25 15:57] LABS: JCV Antibody INDETERMINATE; JCV Index Value 0.32
[2020-04-25 16:23] LABS: JCV Ab Inhibition FINAL RSLT: NEGATIVE
== END 2020-04-16 16:40 | disposition home or self-care (01) | DRG 60 ==
LOC: HO.ED 17:28 → HO.S3 23:08
PROVIDERS: Family Medicine; Physician Assistant Medical; Admitting Provider Internal Medicine; Emergency Provider Emergency Medicine Emergency Medical Services; Visit Provider Student in an Organized Health Care Education/Training Program
DX: G35 Multiple sclerosis (principal); M25.551 Pain in right hip; Z20.828 Contact with and (suspected) exposure to other viral communicable diseases
CPT/HCPCS: 36415; 70450; 70553; 72156; 80053; 80076; 82947; 85025; 85610; 86618; 86711; 87635; 93005; 99285; A9585; J2930

== ENCOUNTER 2020-04-25 15:13 | Inpatient (IN) | payer OTHER, SELFPAY ==
[2020-04-25 15:19] VITALS: PULSE 112; RESP 18; TEMP 37.1; O2SAT 98; BMI 32.5
--- NOTE | 2020-04-25 16:46 | ED.NEUROSD ---
HPI - Neuro Symptoms/Deficit General Chief Complaint: Neuro Symptoms/Deficit Stated Complaint: ms flare up Time Seen by Provider: 04/25/20 16:40 Source: patient and old records reviewed Mode of arrival: ambulatory Limitations: no limitations History of Present Illness HPI Narrative: 29 yo male with recent brainstem dx of MS here with worsening R sided weakness, numbness, slurred speech, just started prednisone 60mg yesterday after completing IV solumedrol !G x 5 days on 04/16 patient here because he states he cannot even feed himself Onset (ago): day(s) (5+) Location: speech, right face, right arm and right leg History of same: Yes Severity: moderate Quality: weak, numb, tingling and constant Relieving factors: none Exacerbating factors: none Context: gradual onset On Anticoagulants: No Associated symptoms: weakness Treatments Prior to Arrival: other (took 60 of prednisone yesterday) Related Data Home Medications Medication Instructions Recorded Confirmed No Known Home Meds 04/12/20 04/12/20 Allergies Allergy/AdvReac Type Severity Reaction Status Date / Time No Known Allergies Allergy Verified 04/12/20 11:44 Review of Systems Review of Systems: Constitutional : No Weight loss, No Fever, No Chills, No Fatigue, No Malaise ENT/Mouth : No sore throat, No Rhinorrhea Eyes: No Eye Pain, No Swelling, No Redness, positive double vision Cardiovascular : No Chest Pain, No SOB, No Dyspnea on Exertion, No Orthopnea, No Edema, No Palpitations Respiratory : No Cough, No Sputum, No Wheezing Gastrointestinal : No Nausea, No Vomiting, No Diarrhea, No Constipation, No abdominal Pain, No Hematochezia, No Melena Genitourinary : No Dysuria, No Urinary Frequency, No Hematuria, Musculoskeletal : No joint pain, No Myalgias, No Joint Swelling Skin : No Skin Lesions, No rash Neuro :pos Weakness, pos Numbness, No Dizziness, No Headache Psych : No Anxiety/Panic, No Depression Heme/Lymph: No Bruising, No Bleeding,No Lymphadenopathy Endocrine : No Polyuria, No Polydipsia All other systems reviewed and are negative [facility] Past Medical History Medical History (Updated 04/25/20 @ 18:04 by Nohemi Zacarias DO) 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 Oriented X3. No acute distress. Eyes: Pupils equal, round and reactive to light. ENT: Pharynx normal. Neck: Normal inspection. Neck supple. CVS: Normal heart rate and rhythm. Pulses normal. Respiratory: No respiratory distress. Breath sounds normal. Abdomen: Soft and nontender. Skin: Skin warm and dry. Normal skin color. Normal skin turgor. Extremities: No lower extremity edema. No calf ttp Neuro: Oriented X 3. RUE 3/5 and RLE 4/5 mild R sided lower facial droop reports decreased sensation to RUE/face/RLE, mild dysarthria Course Course Course Narrative: call to Neurology for recommendations: Dr. Wong give repeat round of steroids. MDM - Neuro Symptoms/Deficit MDM Narrative Medical decision making narrative: 29 yo male with hx of MS just completed 5 days of 1G IV on 04/16 for double vision, numbness, slurred speech notes since he left he has had worsening slurred speech, facial numbness, R sided weakness in his RUE and RLE - currently started 60mg prednisone yesterday will obtain basic labs and discuss with Neurology to best treat, given the degree of R sided weakness may obtain CT head as well. Lab Data Result diagrams: 04/25/20 17:11 04/25/20 17:11 Labs: Lab Results 04/25/20 Range/Units 17:11 WBC 15.2 H (4.8-10.8) X10*3/uL RBC 5.06 (4.60-5.80) X10*6/uL Hgb 15.6 (14.0-18.0) g/dl Hct 46.7 (42-52) % MCV 92.3 (80-98) fL MCH 30.8 (27.0-33.0) pg MCHC 33.4 (31.0-36.0) g/dl RDW 13.1 (11.0-16.0) % Plt Count 194 (160-400) X10*3/uL MPV 10.3 (9.4-12.4) fL Immature Gran % (Auto) 0.3 (0.0-0.4) % Neut % (Auto) 84.7 H (45-73) % Lymph % (Auto) 10.0 L (20-40) % [place] % (Auto) 4.9 (2-11) % Eos % (Auto) 0.0 (0-4) % Baso % (Auto) 0.1 (0-2) % Lymph # (Auto) 1.5 (1.2-4.9) X10*3/uL [place] # (Auto) 0.7 (0.1-1.2) X10*3/uL Eos # (Auto) 0.0 (0.0-0.4) X10*3/uL Baso # (Auto) 0.0 (0.0-0.2) X10*3/uL Abs Immat Gran (auto) 0.05 H (0.00-0.03) X10*3/uL Absolute Neuts (auto) 12.9 H (2.0-8.3) X10*3/uL Absolute Nucleated RBC 0.000 (0.0-0.012) X10*3/uL Nucleated RBC % (auto) 0.0 (0.0-0.2) /100WBC Discharge Plan Discharge Clinical Impression: Multiple sclerosis involving brain stem, Weakness Patient Disposition: Admitted As Inpatient Prescriptions: No Action No Known Home Meds RF: 0
--- NOTE | 2020-04-25 16:56 | CT_ITS ---
EXAMINATION: CT HEAD WITHOUT CONTRAST CLINICAL INFORMATION: Right-sided weakness, slurred speech and history of MS. COMPARISON: MRI head 04/12/2020 TECHNIQUE: Contiguous axial imaging was performed from the skull base to vertex without intravenous administration of contrast. This CT examination was performed using dose optimization techniques as appropriate, variously including the following: *Automated exposure control *Adjustment of mA and/or kV according to patient size (this includes techniques or standardized protocols for targeted exams where dose is matched to indication/reason for exam; i.e. extremities or head) *Use of iterative reconstruction technique DLP: 726 mGy-cm FINDINGS: There is no evidence of acute intracranial hemorrhage or territorial infarction. No abnormal mass effect or midline shift is seen. Cam to white matter differentiation is well preserved. No extra-axial fluid collections are identified. The ventricles are normal in size. There is no abnormal attenuation within the brain parenchyma. The osseous structures and soft tissues are normal. The mastoid air cells and visualized portions of the paranasal sinuses are well aerated. CT/CT head/brain wo con IMPRESSION: No acute intracranial process seen
[2020-04-25 17:31] LABS: Basophils Percent Auto 0.1 % (0-2); Hematocrit 46.7 % (42-52); Hemoglobin 15.6 g/dl (14.0-18.0); Imm Gran Abs Auto 0.05 X10*3/uL (0.00-0.03); Imm Gran Pct Auto 0.3 % (0.0-0.4); Lymphocytes Absolute Auto 1.5 X10*3/uL (1.2-4.9); Mean Corpuscular HGB Conc 33.4 g/dl (31.0-36.0); Mean Corpuscular Hemoglobin 30.8 pg (27.0-33.0); Mean Corpuscular Volume 92.3 fL (80-98); Mean Platelet Volume 10.3 fL (9.4-12.4); Monocytes Absolute Auto 0.7 X10*3/uL (0.1-1.2); Monocytes Percent Auto 4.9 % (2-11); Neutrophils Absolute Auto 12.9 X10*3/uL (2.0-8.3); Neutrophils Percent Auto 84.7 % (45-73); Platelet Count 194 X10*3/uL (160-400); Red Blood Count 5.06 X10*6/uL (4.60-5.80); Red Cell Distribution Width 13.1 % (11.0-16.0); White Blood Count 15.2 X10*3/uL (4.8-10.8)
[2020-04-25 17:32] LABS: MANUAL DIFF FLAG NO
--- NOTE | 2020-04-25 17:51 | PC.NURSE ---
second call placed for neuro consult at [phone]. [place] [facility] sent at [phone].
[2020-04-25 18:00] VITALS: BP 131/75; PULSE 93; RESP 18; TEMP 37.1; O2SAT 97
[2020-04-25 18:01] LABS: COVID-19 Test Negative (Negative)
--- NOTE | 2020-04-25 18:06 | PM.EVENT ---
Event Note Date of Service: 04/25/20 Event Note: Patient seen and examined. Case discussed with GEORGIA Andujar. Agree with her history and physical + plan as documented. In brief, 29-year-old male who was diagnosed with MS earlier this month now presenting back with worsening of his neurological symptoms. Was treated with 5 days burst steroids and was awaiting insurance auth for MS drugs. Started experiencing R UE/LE weakness and so came to the ED. Admit for burst steroids. Neurology consult. Remainder per H&P
[2020-04-25 18:43] LABS: Erythrocyte Sedimentation Rate 7 MM/HR (0-15)
--- NOTE | 2020-04-25 18:47 | PM.IMHP ---
History of Present Illness Date of Service: 04/25/20 Chief Complaint: Right-sided weakness This is a 29-year-old male who was recently diagnosed with multiple sclerosis who presents to the emergency department with right-sided weakness. He was admitted from April 12 to April 16 during which time he was diagnosed with multiple sclerosis and treated with burst of high dose steroids. He was seen the day after discharge in the neurology office with plan start an immune modulator therapy. Unfortunately he is waiting for prior authorization has not yet been able to begin this medication. he began having weakness of his right upper and lower extremity starting yesterday. He called the Neurology office who prescribed prednisone which she began taking yesterday. His weakness continued and he also reports some slurred speech which prompted him to come to the emergency department. Brain CT was unremarkable. The emergency room provider discussed the case with the neurologist who recommended restarting high-dose steroids. 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 Functional capacity: independent ambulation Family history: reviewed and not pertinent Surgical History No history of previous surgery Social History Alcohol intake: never Smoking Status: Never smoker Smoked in Last 30 Days: No Use of substances other than those prescribed or required for medical reasons: No Advance Directives: No Advance Directives Information Provided: No service: Yes Current occupational status: employed Meds Allergies Allergy/AdvReac Type Severity Reaction Status Date / Time No Known Allergies Allergy Verified 04/12/20 11:44 Home Medications Medication Instructions Recorded Confirmed Type cyclobenzaprine [Flexeril] 10 mg PO BID 04/25/20 04/25/20 History diclofenac sodium 75 mg PO BID 04/25/20 04/25/20 History prednisone 0 mg PO DAILY 04/25/20 04/25/20 History Physical Exam Vital Signs and Narrative: Vital Signs: Last Vital Signs Temp 98.8 F 04/25/20 15:19 Pulse 112 H 04/25/20 15:19 Resp 18 04/25/20 15:19 Pulse Ox 98 04/25/20 15:19 Body Mass Index 32.5 Const: Nutritional Appearance: well nourished Orientation/consciousness: patient oriented x3 HENMT: Head: Yes normocephalic and Yes atraumatic Eyes: Sclerae: sclerae normal Chest: Chest palpation & inspection: normal inspection of the chest Resp: Effort & Inspection: normal respiratory effort and no respiratory distress Auscultation: clear to auscultation bilaterally Cardio: Rate: regular rate Rhythm: regular rhythm GI: Palpation (GI): Soft to palpation and nontender Skin: General skin exam: no rashes or lesions noted Neuro: Other: weakness of right upper and lower extremity. Asymmetrical hand grasp,weaker on right compared to left. General: patient oriented x3 Extrem: General: Yes normal to inspection Results Labs CBC and Chem 7: 04/25/20 17:11 04/25/20 17:11 Labs: Laboratory Results - last 24 hr 04/25/20 04/25/20 04/25/20 17:11 17:11 17:11 MCV 92.3 MCH 30.8 MCHC 33.4 RDW 13.1 Plt Count 194 MPV 10.3 Immature Gran % (Auto) 0.3 Neut % (Auto) 84.7 H Lymph % (Auto) 10.0 L [place] % (Auto) 4.9 Eos % (Auto) 0.0 Baso % (Auto) 0.1 Lymph # (Auto) 1.5 [place] # (Auto) 0.7 Eos # (Auto) 0.0 Baso # (Auto) 0.0 Abs Immat Gran (auto) 0.05 H Absolute Neuts (auto) 12.9 H Absolute Nucleated RBC 0.000 Nucleated RBC % (auto) 0.0 ESR 7 Anion Gap Cancelled Estim Creat Clear Calc Cancelled Estimated GFR Cancelled Random Glucose Cancelled Calcium Cancelled C-Reactive Protein Cancelled COVID-19 (CRISTOPHER) COVID-19 Clin Com 04/25/20 17:11 MCV MCH MCHC RDW Plt Count MPV Immature Gran % (Auto) Neut % (Auto) Lymph % (Auto) [place] % (Auto) Eos % (Auto) Baso % (Auto) Lymph # (Auto) [place] # (Auto) Eos # (Auto) Baso # (Auto) Abs Immat Gran (auto) Absolute Neuts (auto) Absolute Nucleated RBC Nucleated RBC % (auto) ESR Anion Gap Estim Creat Clear Calc Estimated GFR Random Glucose Calcium C-Reactive Protein COVID-19 (CRISTOPHER) Negative COVID-19 Clin Com See Note Imaging Radiologist's Impressions: Impressions Head CT 04/25/20 16:56 IMPRESSION: No acute intracranial process seen Assessment and Plan (1) Multiple sclerosis of cord: Status: Acute This is a 29-year-old male with recently diagnosed multiple sclerosis who presents to the emergency department with worsening right-sided weakness and slurred speech. Exacerbation of multiple sclerosis New right-sided weakness s/p 5 days high-dose steroids 04/12-04/16 -high-dose Solu-Medrol -neurology consult Leukocytosis Likely secondary to steroid use. No sepsis DVT prophylaxis-Lovenox Code status-full code This case was discussed with Dr. Russell
[2020-04-25 21:19] VITALS: BP 138/75; PULSE 101; RESP 18; TEMP 36.9; O2SAT 97
[2020-04-25 22:00] LABS: Anion Gap 15 (12-20); Blood Urea Nitrogen 24 mg/dL (9-16); Calcium 9.6 mg/dL (8.4-10.2); Carbon Dioxide 24 mmol/L (22-29); Chloride 101 mmol/L (96-108); Creatinine Clr Calc Pharmacy 104.9; Estimated Glomerular Filt Rate > 60; Glucose Random 194 mg/dL (60-115); Potassium 4.8 mmol/l (3.3-5.1); Sodium 135 mmol/L (135-145)
--- NOTE | 2020-04-25 23:28 | PC.NURSE ---
Fourth floor called to give report. This service writer advisor was told that JONNIE Nuñez would be giving this service writer advisor a call back.
--- NOTE | 2020-04-26 | XR_ITS ---
EXAMINATION: XR HIP, RIGHT CLINICAL INFORMATION: Hip pain COMPARISON: None TECHNIQUE: Single AP view of pelvis. Two views of the right hip. FINDINGS: No acute fracture or dislocation. Normal bone mineral density. Bilateral coxa valga. Femoral heads are spherical. Hip joint space maintained. Pelvic ring intact. Alignment is anatomic. Soft tissues unremarkable. XR/XR hip RT min 2V IMPRESSION: No acute fracture or dislocation. No evidence of avascular necrosis.
[2020-04-26] MEDS: Cyclobenzaprine HCl 10 MG TABLET PO ×3 (00:53→19:31)
[2020-04-26] MEDS: Diclofenac Sodium Delayed Rel 75 MG TABLET.DR PO ×3 (00:53→19:34)
[2020-04-26] MEDS: Enoxaparin Sodium 40 MG/0.4 ML SYRINGE SUBCUT ×2 (00:53→23:22)
[2020-04-26] MEDS: 0.9 % Sodium Chloride Flush 3 ML SYRINGE IVFLUSH ×4 (00:54→23:22)
[2020-04-26 04:00] VITALS: BP 137/79; PULSE 80; RESP 18; TEMP 36.2; O2SAT 98
[2020-04-26 07:39] LABS: MANUAL DIFF FLAG NO
[2020-04-26 07:51] LABS: Basophils Percent Auto 0.1 % (0-2); Hematocrit 44.4 % (42-52); Hemoglobin 14.7 g/dl (14.0-18.0); Imm Gran Abs Auto 0.11 X10*3/uL (0.00-0.03); Imm Gran Pct Auto 0.7 % (0.0-0.4); Lymphocytes Absolute Auto 1.8 X10*3/uL (1.2-4.9); Lymphocytes Percent Auto 10.7 % (20-40); Mean Corpuscular HGB Conc 33.1 g/dl (31.0-36.0); Mean Corpuscular Hemoglobin 30.4 pg (27.0-33.0); Mean Corpuscular Volume 91.9 fL (80-98); Mean Platelet Volume 11.1 fL (9.4-12.4); Monocytes Absolute Auto 0.2 X10*3/uL (0.1-1.2); Monocytes Percent Auto 1.4 % (2-11); Neutrophils Absolute Auto 14.5 X10*3/uL (2.0-8.3); Neutrophils Percent Auto 87.1 % (45-73); Platelet Count 192 X10*3/uL (160-400); Red Blood Count 4.83 X10*6/uL (4.60-5.80); Red Cell Distribution Width 12.9 % (11.0-16.0); White Blood Count 16.6 X10*3/uL (4.8-10.8)
[2020-04-26 08:21] LABS: Anion Gap 17 (12-20); Blood Urea Nitrogen 28 mg/dL (9-16); Calcium 9.5 mg/dL (8.4-10.2); Carbon Dioxide 21 mmol/L (22-29); Chloride 102 mmol/L (96-108); Creatinine Clr Calc Pharmacy 121.9; Estimated Glomerular Filt Rate > 60; Glucose Random 118 mg/dL (60-115); Sodium 135 mmol/L (135-145)
--- NOTE | 2020-04-26 09:09 | HO.PM.IMPN ---
Subjective Subjective Date of Service: 04/26/20 Interval History: seen and examined slept well R hip pain, which flexeril helps no new neurological symptoms ROS General - no fevers or chills Cardiovascular - no chest pain Respiratory - no shortness of breath or cough Abdominal- no abdominal pain, nausea, vomiting, diarrhea Neuro - R sided weakness Physical Exam Vital Signs: Vital Signs: Last Vital Signs Temp 97.2 F 04/26/20 04:00 Pulse 80 04/26/20 04:00 Resp 18 04/26/20 04:00 BP 137/79 04/26/20 04:00 Pulse Ox 98 04/26/20 04:00 Body Mass Index 32.5 Const: Other: General - no acute distress, appears comfortable Cardiovascular - regular rate and rhythm, S1-S2 Lungs - normal respiratory effort, clear to auscultation bilaterally, no wheezing Abdomen - soft, nontender, no rebound or guarding Extremities - no edema bilaterally Neuro - awake and alert, R UE/LE strenght appears slightly improved compared to yesterday Objective Data Current Medications Generic Name Dose Route Start Last Admin Trade Name Freq PRN Reason Stop Dose Admin Acetaminophen 650 mg 04/25/20 18:55 Acetaminophen 325 Mg Tablet PO Q6H PRN Pain, Mild (Pain Scale 1-3) Cyclobenzaprine HCl 10 mg 04/25/20 23:42 04/26/20 08:18 Cyclobenzaprine Hcl 10 Mg Tablet PO 10 mg BID LAURYN Administration Diclofenac Sodium 75 mg 04/25/20 23:42 04/26/20 08:18 Diclofenac Sodium Delayed Rel 75 Mg Tablet.Dr PO 75 mg BID LAURYN Administration Docusate Sodium 100 mg 04/25/20 18:55 Docusate Sodium 100 Mg Capsule PO DAILY PRN Constipation Enoxaparin Sodium 40 mg 04/25/20 23:42 04/26/20 00:53 Enoxaparin Sodium 40 Mg/0.4 Ml Syringe SUBCUT 40 mg Q24H LAURYN Administration Methylprednisolone Sodium 116 mls @ 116 mls/hr 04/26/20 09:00 Succinate 1,000 mg/ Sodium IV 04/29/20 09:59 Chloride DAILY LAURYN Ondansetron HCl 4 mg 04/25/20 18:55 Ondansetron Hcl 4 Mg/2 Ml Vial IVPUSH Q8H PRN Nausea and Vomiting Pharmacy Consult 1 each 04/25/20 18:10 Consult Rx Perform Med Rec MISCELLANE ONCE PRN Consult order Sodium Chloride 3 ml 04/26/20 00:00 04/26/20 08:18 0.9 % Sodium Chloride Flush 3 Ml Syringe IVFLUSH 3 ml QSHIFT LAURYN Administration Labs CBC & Chem 7: 04/26/20 05:55 04/26/20 06:28 Assessment and Plan (1) Multiple sclerosis of cord: Status: Acute Assessment and Plan: This is a 29 yo M admitted for MS flare 1. MS Flare solu-medrol 1g - day 2/ today neuro eval 2. Leukocytosis from steroids, no foci of infection identified 3. R hip pain MSK in nature flexeril check hip xr Full Code DVT pptx, lovenox
[2020-04-26] MEDS: methylPREDNISolone Sod Succ 1,000 MG in 0.9 % Sodium Chloride 100 ML 116 MG IV (10:13)
[2020-04-26 10:52] VITALS: BP 139/67; PULSE 93; RESP 18; TEMP 36.6; O2SAT 99
--- NOTE | 2020-04-26 12:04 | MHC.CM.PN ---
pt reports being indepedent cm intervention is not indicated dc plan home no servceis
--- NOTE | 2020-04-26 14:46 | PM.NEUROCN ---
History of Present Illness Data of Consult Service Date: 04/26/20 Primary Care Provider: Nonstaff Physician HPI Reason for consult: Slurred speech and right-sided weakness x2 days None this is a 29-year-old man who was just diagnosed with multiple sclerosis about 10 days ago when he was admitted here with numbness in both lower extremity diplopia internuclear ophthalmoplegia and MRIs of the brain and cervical cord which showed multiple lesions consistent with MS including some enhancement in the cervical cord brainstem and a couple of enhancing lesions in the brain. He was treated with IV Solu-Medrol 1 g a day for 5 days and discharged. Two days ago he started getting new symptoms with increased weakness and fell down when his right leg collapsed and then he develops slurred speech and right hand weakness so he came to the ER last night and was admitted and restarted on IV Solu-Medrol. 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 At this point he has gotten significantly worse and I have told him to forget about his deployment and that we are more concerned about his MS and we do not want him to end up with significant disability and therefore he has consented to IV drugs. His OC virus was 0.3 so we are going to work on getting him approval for Ocrevus infusions every 6 months hopefully on Wednesday at the skin go through with his insurance. Review of Systems Eyes: Eyes: Reports no additional eye complaints ENT: Reports system reviewed and no additional complaints, except as documented and Reports Normal hearing present Cardiovascular: Cardiovascular: Reports no additional cardiovascular complaints Respiratory: Respiratory: Reports no additional respiratory complaints Gastrointestinal: Gastrointestinal: Reports no additional gastrointestinal complaints Genitourinary: Genitourinary: Reports no additional male genitourinary complaints Musculoskeletal: Musculoskeletal: Reports no additional musculoskeletal complaints Integumentary/Breasts: Skin/Breast: Reports system reviewed and no additional complaints, except as docu Neurologic: Reports as per HPI and Reports Normal hearing present Psychiatric: Psychiatric: Reports as per HPI Endocrine: Endocrine: Reports no additional endocrine complaints Hematologic/Lymphatic: Hematologic/Lymphatic: Reports no additional hematologic/lymphatic complaints Allergic/Immunologic: Allergic/Immunologic: Reports no additional allergic/immunologic complaints [facility] Past Medical History Medical History 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 Functional capacity: independent ambulation Family History Family history: reviewed and not pertinent Surgical History Surgical History No history of previous surgery Social History Social History Household Members: Significant Other Housing: House Do you presently have visiting nurse or other home services: No Alcohol intake: never Smoking Status: Never smoker Smoked in Last 30 Days: No Use of substances other than those prescribed or required for medical reasons: No Currently Displaying Signs/Symptoms of Drug Intoxication Withdrawal: No Have you been hit, kicked, punched, or otherwise hurt by someone within the past year? If so, by whom?: No Do you feel safe in your current relationship?: No Is there a partner from a previous relationship who is making you feel unsafe now?: No Are you made to feel afraid or neglected: No Advance Directives: No Advance Directives Information Provided: No Advance Directives on File: No Do you have thoughts of harming others: None Do you have a plan to hurt others: No Plan Recently lost weight without trying: No service: Yes Current occupational status: employed Meds Allergies Allergy/AdvReac Type Severity Reaction Status Date / Time No Known Allergies Allergy Verified 04/12/20 11:44 Home Medications Medication Instructions Recorded Confirmed Type cyclobenzaprine [Flexeril] 10 mg PO BID 04/25/20 04/25/20 History diclofenac sodium 75 mg PO BID 04/25/20 04/25/20 History prednisone 0 mg PO DAILY 04/25/20 04/25/20 History Physical Exam Vital Signs: Vital Signs: Last Vital Signs Temp 98 F 04/26/20 10:52 Pulse 93 04/26/20 10:52 Resp 18 04/26/20 10:52 BP 139/67 04/26/20 10:52 Pulse Ox 99 04/26/20 10:52 Body Mass Index 32.5 Const: General: cooperative, comfortable, no acute distress, well developed, alert and awake Nutritional Appearance: well nourished Orientation/consciousness: oriented to person, oriented to place and oriented to time Limitations: no limitations HENMT: Other: Right facial droop Head: Yes normal to inspection, Yes normocephalic and Yes atraumatic Ears: hearing grossly normal bilaterally General nose exam: Normal external nose present Mouth: Normal oral and palatal mucosa present Eyes: Other: 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 General: appearance normal, both eyes and all related structures Visual Patton: normal visual patton by confrontation Alignment and Position: alignment normal Periorbital: periorbital findings normal Eyelids: Yes eyelids normal Conjunctivae: conjunctivae normal Sclerae: sclerae normal Corneas: corneas normal Pupils: Equal, round and reactive pupils present and Pupil accommodation reflex normal Direct Ophthalmoscopy: normal light reflex Neck: Neck: Yes normal visual inspection, Yes full ROM and Yes no meningeal signs Thyroid: Thyroid normal Carotids: normal carotid upstroke and bounding pulses Chest: Chest palpation & inspection: normal inspection of the chest Resp: Effort & Inspection: normal respiratory effort Auscultation: clear to auscultation bilaterally Cardio: Rate: regular rate Rhythm: regular rhythm Heart sounds: S1 normal heart sound present and S2 normal heart sound present Peripheral pulses: Peripheral pulses 2+ throughout GI: Inspection: Yes normal to inspection Percussion: Yes normal to percussion Auscultation: normal bowel sounds Rectal Exam - Male: Yes deferred Back/Spine/Pelvis: Cervical Spine: normal cervical lordosis and cervical ROM normal Thoracic/Lumbar Spine: thoracic and lumbar spine normal to inspection Skin: General skin exam: no rashes or lesions noted Neuro: Other: He has got mild dysarthria. He has a right facial droop. 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 He has a pronation drift of the right upper extremity and right upper extremity weakness 4+/5 weakness in his right lower extremity 4+/5 reflexes diminished plantar responses neutral on the right equivocal on the left. Gait was not tested because of fear of fall General: oriented to person, oriented to place, oriented to time, tone normal, moves all extremities, Normal light touch and pain sensation, no meningeal signs, normal sensation to monofilament and deep tendon reflexes 2+ bilaterally Cranial nerves: Yes Equal, round and reactive pupils present, Yes Midline tongue present, Yes Normal gag reflex present, Yes Symmetric palate elevation present, Yes Normal hearing present and Yes Ability to bilaterally rotate head present Cognition (Neuro): normal cognition Speech: Other speech findings present (Neuro) Motor exam (neuro): no tremor noted, no asterixis, Motor fasciculations not present, Normal motor muscle tone present throughout and Motor abnormalities not present Sensory Exam: Bilaterally intact graphesthesia Deep tendon reflexes (DTR's): Right triceps reflex intensity grade: 2+, Left triceps reflex intensity grade: 2+, Rt Biceps (C5, C6): 2+, Left biceps reflex intensity grade: 2+, Right brachioradialis reflex intensity grade: 2+, Left brachioradialis reflex intensity grade: 2+, Right patellar reflex intensity grade: 2+, Left patellar reflex intensity grade: 2+, Right ankle reflex intensity grade: 2+ and Left ankle reflex intensity grade: 2+ Plantar Reflex Responses: downgoing: right, left and bilateral Coordination: [id number] test normal, [id number] test normal, tandem gait normal and Romberg test negative Pupils: Normal pupillary reactivity/response: bilateral Extrem: General: Yes normal to inspection, Yes normal exam except as noted and Yes no pedal edema Psych: Appearance: grossly normal Mental Status: mental status grossly normal Speech and movement: Normal speech and movement present and Clear speech present Affect: normal affect Attitude: cooperative Thought process: Normal thought process present Results Labs CBC & Chem 7: 04/26/20 05:55 04/26/20 06:28 Labs: Short CBC 04/25/20 04/26/20 Range/Units 17:11 05:55 WBC 15.2 H 16.6 H (4.8-10.8) X10*3/uL Hgb 15.6 14.7 (14.0-18.0) g/dl Hct 46.7 44.4 (42-52) % Plt Count 194 192 (160-400) X10*3/uL BMP 04/25/20 04/25/20 04/26/20 17:11 21:23 06:28 Sodium Cancelled 135 135 Potassium Cancelled 4.8 D 5.0 Chloride Cancelled 101 102 Carbon Dioxide Cancelled 24 21 L BUN Cancelled 24 H 28 H Creatinine Cancelled 1.22 1.05 Calcium Cancelled 9.6 9.5 Assessment and Plan (1) Multiple sclerosis involving brain stem: Problem details: Worsening of MS with further exacerbation in the left hemisphere Status: Acute Repeat MRI of the brain with and without gadolinium. Restart IV Solu-Medrol 1 g a day for 5 days. His OC virus titers at 0.3. Lyme antibodies are negative. We will try and get approval for IV Ocrevus treatments for him next week. I have told him that I do not think that his deployment to [place] is going to be a possibility at this time looking at the active nature of his MS. (2) Multiple sclerosis of cord: Status: Acute
[2020-04-26 15:53] VITALS: BP 138/87; PULSE 115; RESP 18; TEMP 37.1; O2SAT 97
[2020-04-26 19:27] VITALS: BP 131/80; PULSE 104; RESP 19; TEMP 37.1; O2SAT 97
[2020-04-26 23:26] VITALS: BP 157/94; PULSE 91; RESP 16; TEMP 37; O2SAT 94
[2020-04-27 04:00] VITALS: BP 114/60; PULSE 77; RESP 16; TEMP 36.9; O2SAT 99
[2020-04-27 07:39] VITALS: BP 105/53; PULSE 77; RESP 18; TEMP 36.6; O2SAT 98
[2020-04-27] MEDS: methylPREDNISolone Sod Succ 1,000 MG in 0.9 % Sodium Chloride 100 ML 116 MG IV (09:20)
[2020-04-27] MEDS: Cyclobenzaprine HCl 10 MG TABLET PO ×2 (09:20→20:16)
[2020-04-27] MEDS: Diclofenac Sodium Delayed Rel 75 MG TABLET.DR PO ×2 (09:20→20:16)
[2020-04-27] MEDS: 0.9 % Sodium Chloride Flush 3 ML SYRINGE IVFLUSH ×3 (09:21→23:33)
[2020-04-27 11:07] VITALS: BP 140/83; PULSE 85; RESP 18; TEMP 36.8; O2SAT 99
--- NOTE | 2020-04-27 12:22 | HO.PM.IMPN ---
Subjective Subjective Date of Service: 04/27/20 Interval History: seen and examined no new complaints feels like he is improving ROS General - no fevers or chills Cardiovascular - no chest pain Respiratory - no shortness of breath or cough Abdominal- no abdominal pain, nausea, vomiting, diarrhea Neuro - R sided weakness improving Physical Exam Vital Signs: Vital Signs: Last Vital Signs Temp 98.3 F 04/27/20 11:07 Pulse 85 04/27/20 11:07 Resp 18 04/27/20 11:07 BP 140/83 H 04/27/20 11:07 Pulse Ox 99 04/27/20 11:07 Body Mass Index 32.5 Const: Other: General - no acute distress, appears comfortable Cardiovascular - regular rate and rhythm, S1-S2 Lungs - normal respiratory effort, clear to auscultation bilaterally, no wheezing Abdomen - soft, nontender, no rebound or guarding Extremities - no edema bilaterally Neuro - awake and alert, RUE/RLE strength continues to improve Objective Data Current Medications Generic Name Dose Route Start Last Admin Trade Name Yoanq PRN Reason Stop Dose Admin Acetaminophen 650 mg 04/25/20 18:55 Acetaminophen 325 Mg Tablet PO Q6H PRN Pain, Mild (Pain Scale 1-3) Cyclobenzaprine HCl 10 mg 04/25/20 23:42 04/27/20 09:20 Cyclobenzaprine Hcl 10 Mg Tablet PO 10 mg BID LAURYN Administration Diclofenac Sodium 75 mg 04/25/20 23:42 04/27/20 09:20 Diclofenac Sodium Delayed Rel 75 Mg Tablet.Dr PO 75 mg BID LAURYN Administration Docusate Sodium 100 mg 04/25/20 18:55 Docusate Sodium 100 Mg Capsule PO DAILY PRN Constipation Enoxaparin Sodium 40 mg 04/25/20 23:42 04/26/20 23:22 Enoxaparin Sodium 40 Mg/0.4 Ml Syringe SUBCUT 40 mg Q24H LAURYN Administration Methylprednisolone Sodium 116 mls @ 116 mls/hr 04/26/20 09:00 04/27/20 10:26 Succinate 1,000 mg/ Sodium IV 04/29/20 09:59 Infused Chloride DAILY LAURYN Infusion Ondansetron HCl 4 mg 04/25/20 18:55 Ondansetron Hcl 4 Mg/2 Ml Vial IVPUSH Q8H PRN Nausea and Vomiting Pharmacy Consult 1 each 12/31/20 18:10 Consult Rx Perform Med Rec MISCELLANE ONCE PRN Consult order Sodium Chloride 3 ml 04/26/20 00:00 04/27/20 09:21 0.9 % Sodium Chloride Flush 3 Ml Syringe IVFLUSH 3 ml QSHIFT LAURYN Administration Labs CBC & Chem 7: 04/26/20 05:55 04/26/20 06:28 Assessment and Plan (1) Multiple sclerosis of cord: Status: Acute Assessment and Plan: This is a 29 yo M admitted for MS flare 1. MS Flare solu-medrol 1g - day 06/28 today neuro evalappreciated -- recommends repeat MRI head with and without. To be done Wednesday. 2. Leukocytosis from steroids, no foci of infection identified 3. R hip pain muscular in nature flexeril helping Full Code DVT pptx, lovenox
[2020-04-27 15:42] VITALS: BP 140/80; PULSE 89; RESP 18; TEMP 36.8; O2SAT 96
[2020-04-27 19:53] VITALS: BP 163/91; PULSE 98; RESP 18; TEMP 36.5; O2SAT 100
[2020-04-27 23:28] VITALS: BP 144/89; PULSE 81; RESP 16; TEMP 37.2; O2SAT 96
[2020-04-27] MEDS: Enoxaparin Sodium 40 MG/0.4 ML SYRINGE SUBCUT (23:33)
[2020-04-28 03:15] VITALS: BP 155/86; PULSE 82; RESP 16; TEMP 36.9; O2SAT 97
[2020-04-28 07:13] VITALS: BP 125/73; PULSE 77; RESP 18; TEMP 36.6; O2SAT 97
--- NOTE | 2020-04-28 08:49 | HO.PM.IMPN ---
Subjective Subjective Date of Service: 04/28/20 Interval History: seen and examined feels like he is improving daily no new complaints ROS General - no fevers or chills Cardiovascular - no chest pain Respiratory - no shortness of breath or cough Abdominal- no abdominal pain, nausea, vomiting, diarrhea Neuro - R sided weakness improving Physical Exam Vital Signs: Vital Signs: Last Vital Signs Temp 97.8 F 04/28/20 07:13 Pulse 77 04/28/20 07:13 Resp 18 04/28/20 07:13 BP 125/73 04/28/20 07:13 Pulse Ox 97 04/28/20 07:13 Body Mass Index 32.5 Const: Other: General - no acute distress, appears comfortable Cardiovascular - regular rate and rhythm, S1-S2 Lungs - normal respiratory effort, clear to auscultation bilaterally, no wheezing Abdomen - soft, nontender, no rebound or guarding Extremities - no edema bilaterally Neuro - awake and alert, RUE/RLE strength 4/5; speech improved Objective Data Current Medications Generic Name Dose Route Start Last Admin Trade Name Yoanq PRN Reason Stop Dose Admin Acetaminophen 650 mg 04/25/20 18:55 Acetaminophen 325 Mg Tablet PO Q6H PRN Pain, Mild (Pain Scale 1-3) Cyclobenzaprine HCl 10 mg 04/25/20 23:42 04/27/20 20:16 Cyclobenzaprine Hcl 10 Mg Tablet PO 10 mg BID LAURYN Administration Diclofenac Sodium 75 mg 04/25/20 23:42 04/27/20 20:16 Diclofenac Sodium Delayed Rel 75 Mg Tablet.Dr PO 75 mg BID LAURYN Administration Docusate Sodium 100 mg 04/25/20 18:55 Docusate Sodium 100 Mg Capsule PO DAILY PRN Constipation Enoxaparin Sodium 40 mg 04/25/20 23:42 04/27/20 23:33 Enoxaparin Sodium 40 Mg/0.4 Ml Syringe SUBCUT 40 mg Q24H LAURYN Administration Methylprednisolone Sodium 116 mls @ 116 mls/hr 04/26/20 09:00 04/27/20 10:26 Succinate 1,000 mg/ Sodium IV 04/29/20 09:59 Infused Chloride DAILY LAURYN Infusion Ondansetron HCl 4 mg 04/25/20 18:55 Ondansetron Hcl 4 Mg/2 Ml Vial IVPUSH Q8H PRN Nausea and Vomiting Pharmacy Consult 1 each 04/25/20 18:10 Consult Rx Perform Med Rec MISCELLANE ONCE PRN Consult order Sodium Chloride 3 ml 04/26/20 00:00 04/27/20 23:33 0.9 % Sodium Chloride Flush 3 Ml Syringe IVFLUSH 3 ml QSHIFT LAURYN Administration Labs CBC & Chem 7: 04/26/20 05:55 04/26/20 06:28 Assessment and Plan (1) Multiple sclerosis of cord: Status: Acute Assessment and Plan: This is a 29 yo M admitted for MS flare 1. MS Flare solu-medrol 1g q24h - day 07/29 today neuro evalappreciated -- recommends repeat MRI head with and without. To be done Wednesday. 2. Leukocytosis from steroids, no foci of infection identified 3. R hip pain improved muscular in nature flexeril Full Code DVT pptx, lovenox
[2020-04-28] MEDS: Cyclobenzaprine HCl 10 MG TABLET PO ×2 (10:26→21:29)
[2020-04-28] MEDS: Diclofenac Sodium Delayed Rel 75 MG TABLET.DR PO ×2 (10:26→21:29)
[2020-04-28] MEDS: 0.9 % Sodium Chloride Flush 3 ML SYRINGE IVFLUSH ×3 (10:27→23:29)
[2020-04-28] MEDS: methylPREDNISolone Sod Succ 1,000 MG in 0.9 % Sodium Chloride 100 ML 116 MG IV (10:41)
[2020-04-28 11:45] VITALS: BP 135/86; PULSE 77; RESP 18; TEMP 36.9; O2SAT 100
--- NOTE | 2020-04-28 14:53 | P.PNNE_ITS ---
Subjective Subjective Date of Service: 04/28/20 Interval History: seen and examined feels like he is improving daily no new complaints ROS General - no fevers or chills Cardiovascular - no chest pain Respiratory - no shortness of breath or cough Abdominal- no abdominal pain, nausea, vomiting, diarrhea Neuro - R sided weakness improving Physical Exam Vital Signs: Vital Signs: Last Vital Signs Temp 98.5 F 04/28/20 11:45 Pulse 77 04/28/20 11:45 Resp 18 04/28/20 11:45 BP 135/86 04/28/20 11:45 Pulse Ox 100 04/28/20 11:45 Body Mass Index 32.5 Const: Other: General - no acute distress, appears comfortable Cardiovascular - regular rate and rhythm, S1-S2 Lungs - normal respiratory effort, clear to auscultation bilaterally, no wheezing Abdomen - soft, nontender, no rebound or guarding Extremities - no edema bilaterally Neuro - awake and alert, RUE/RLE strength 4/5; speech improved General: cooperative, comfortable, no acute distress, well developed, alert and awake Nutritional Appearance: well nourished Orientation/consciousness: oriented to person, oriented to place, oriented to time and patient oriented x3 Limitations: no limitations HENMT: Other: Right facial droop Head: Yes normal to inspection, Yes normocephalic and Yes atraumatic Ears: hearing grossly normal bilaterally General nose exam: Normal external nose present Mouth: Normal oral and palatal mucosa present Eyes: Other: 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 General: appearance normal, both eyes and all related structures Visual Patton: normal visual patton by confrontation Alignment and Position: alignment normal Periorbital: periorbital findings normal Eyelids: Yes eyelids normal Conjunctivae: conjunctivae normal Sclerae: sclerae normal Corneas: corneas normal Pupils: Equal, round and reactive pupils present and Pupil accommodation reflex normal Direct Ophthalmoscopy: normal light reflex Neck: Neck: Yes normal visual inspection, Yes full ROM and Yes no meningeal si gns Thyroid: Thyroid normal Carotids: normal carotid upstroke and bounding pulses Chest: Chest palpation & inspection: normal inspection of the chest Resp: Effort & Inspection: normal respiratory effort and no respiratory distress Auscultation: clear to auscultation bilaterally Cardio: Other: General - no acute distress, appears comfortable Cardiovascular - regular rate and rhythm, S1-S2 Lungs - normal respiratory effort, clear to auscultation bilaterally, no wheezing Abdomen - soft, nontender, no rebound or guarding Extremities - no edema bilaterally Neuro - awake and alert, RUE/RLE strength 4/5; speech improved Rate: regular rate Rhythm: regular rhythm Heart sounds: S1 normal heart sound present and S2 normal heart sound present Peripheral pulses: Peripheral pulses 2+ throughout GI: Inspection: Yes normal to inspection Palpation (GI): Soft to palpation and nontender Percussion: Yes normal to percussion Auscultation: normal bowel sounds Rectal Exam - Male: Yes deferred Back/Spine/Pelvis: Cervical Spine: normal cervical lordosis and cervical ROM normal Thoracic/Lumbar Spine: thoracic and lumbar spine normal to inspection Skin: General skin exam: no rashes or lesions noted Neuro: Other: He has got mild dysarthria. He has a right facial droop. 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 He has a pronation drift of the right upper extremity and right upper extremity weakness 4+/5 weakness in his right lower extremity 4+/5 reflexes diminished plantar responses neutral on the right equivocal on the left. Gait was not tested because of fear of fall General: oriented to person, oriented to place, oriented to time, patient oriented x3, tone normal, moves all extremities, Normal light touch and pain sensation, no meningeal signs, normal sensation to monofilament and deep tendon reflexes 2+ bilaterally Cranial nerves: Yes Equal, round and reactive pupils present, Yes Midline tongue present, Yes Normal gag reflex present, Yes Symmetric palate elevation present, Yes Normal hearing present and Yes Ability to bilaterally rotate head present Cognition (Neuro): normal cognition Speech: Other speech findings present (Neuro) Motor exam (neuro): no tremor noted, no asterixis, Motor fasciculations not present, Normal motor muscle tone present throughout and Motor abnormalities not present Sensory Exam: Bilaterally intact graphesthesia Deep tendon reflexes (DTR's): Right triceps reflex intensity grade: 2+, Left triceps reflex intensity grade: 2+, Rt Biceps (C5, C6): 2+, Left biceps reflex intensity grade: 2+, Right brachioradialis reflex intensity grade: 2+, Left brachioradialis reflex intensity grade: 2+, Right patellar reflex intensity grade: 2+, Left patellar reflex intensity grade: 2+, Right ankle reflex intensity grade: 2+ and Left ankle reflex intensity grade: 2+ Plantar Reflex Responses: downgoing: right, left and bilateral Coordination: [id number] test normal, ivdh-[id number] test normal, tandem gait normal and Romberg test negative Pupils: Normal pupillary reactivity/response: bilateral Extrem: General: Yes normal to inspection, Yes normal exam except as noted and Yes no pedal edema Psych: Appearance: grossly normal Mental Status: mental status grossly normal Speech and movement: Normal speech and movement present and Clear speech present Affect: normal affect Attitude: cooperative Thought process: Normal thought process present Objective Data Labs CBC & Chem 7: 04/26/20 05:55 04/26/20 06:28 Progress Note: A&P Assessment and plan (1) Multiple sclerosis of cord: Problem details: Has been stable and showing signs of improvement with the steroids. Will arrange outpatient infusion of Ocrevus Status: Acute Assessment and Plan: This is a 29 yo M admitted for MS flare 1. MS Flare solu-medrol 1g q24h - day 07/29 today neuro evalappreciated -- recommends repeat MRI head with and without. To be done Wednesday. 2. Leukocytosis from steroids, no foci of infection identified 3. R hip pain improved muscular in nature flexeril Full Code DVT pptx, lovenox Fall Risk Details Current Medications: Current Medications Generic Name Dose Route Start Last Admin Trade Name Freq PRN Reason Stop Dose Admin Acetaminophen 650 mg 04/25/20 18:55 Acetaminophen 325 Mg Tablet PO Q6H PRN Pain, Mild (Pain Scale 1-3) Cyclobenzaprine HCl 10 mg 04/25/20 23:42 04/28/20 10:26 Cyclobenzaprine Hcl 10 Mg Tablet PO 10 mg BID LAURYN Administration Diclofenac Sodium 75 mg 04/25/20 23:42 04/28/20 10:26 Diclofenac Sodium Delayed Rel 75 Mg Tablet.Dr PO 75 mg BID LAURYN Administration Docusate Sodium 100 mg 04/25/20 18:55 Docusate Sodium 100 Mg Capsule PO DAILY PRN Constipation Enoxaparin Sodium 40 mg 04/25/20 23:42 04/27/20 23:33 Enoxaparin Sodium 40 Mg/0.4 Ml Syringe SUBCUT 40 mg Q24H LAURYN Administration Methylprednisolone Sodium 116 mls @ 116 mls/hr 04/26/20 09:00 04/28/20 11:41 Succinate 1,000 mg/ Sodium IV 04/29/20 09:59 Infused Chloride DAILY LAURYN Infusion Ondansetron HCl 4 mg 04/25/20 18:55 Ondansetron Hcl 4 Mg/2 Ml Vial IVPUSH Q8H PRN Nausea and Vomiting Pharmacy Consult 1 each 04/25/20 18:10 Consult Rx Perform Med Rec MISCELLANE ONCE PRN Consult order Sodium Chloride 3 ml 04/26/20 00:00 04/28/20 10:27 0.9 % Sodium Chloride Flush 3 Ml Syringe IVFLUSH 3 ml QSHIFT LAURYN Administration Time Spent With Patient Time: Total time spent is greater than 50% in coordination of care (as documented) at patient's floor/unit and/or counseling patient: Time with patient: 15 - 24 minutes
[2020-04-28 15:25] VITALS: BP 163/84; PULSE 76; RESP 18; TEMP 36.8; O2SAT 97
[2020-04-28 19:54] VITALS: BP 152/78; PULSE 82; RESP 17; TEMP 36.4; O2SAT 97
[2020-04-28] MEDS: Enoxaparin Sodium 40 MG/0.4 ML SYRINGE SUBCUT (23:28)
[2020-04-28 23:30] VITALS: BP 130/79; PULSE 84; RESP 20; TEMP 36.5; O2SAT 97
--- NOTE | 2020-04-29 | MR_ITS ---
EXAMINATION: MR BRAIN WITHOUT AND WITH CONTRAST CLINICAL INFORMATION: Multiple sclerosis. COMPARISON: Brain MRI 04/12/2020. TECHNIQUE: Multiplanar MR imaging of the brain was performed without and with contrast. A total of 8.5 mL Gadavist was utilized for this examination. FINDINGS: There is an ill-defined lesion involving the brainstem at the pontomedullary junction to the left of midline best illustrated on axial T2 image 7 of 24 series 9. This lesion appears more pronounced than the findings that were demonstrated on prior imaging from 04/12/2020. There is however no associated intraparenchymal enhancement on postcontrast imaging. Otherwise stable chronic white matter disease involving the supratentorial and infratentorial white matter with a predilection for the callososeptal interface and juxtacortical white matter consistent with the patient's clinical history of multiple sclerosis. No intracranial mass effect or midline shift. No abnormal extra-axial collection. Lateral and third ventricles are normal. No hydrocephalus. The cervicomedullary junction is normal. No acute bone marrow signal changes. There is no mastoid or middle ear effusion. Mild present sinus disease primarily affecting the ethmoid air cells. Globes and orbits are symmetric. MR/MR head/brain wo/w con IMPRESSION: The white matter lesion involving the brainstem at the pontomedullary junction is more pronounced when compared to the prior brain MRI from 04/12/2020. There is however no associated intraparenchymal enhancement demonstrated on postcontrast images to suggest active demyelination. Otherwise stable chronic white matter disease.
[2020-04-29 04:00] VITALS: BP 142/90; PULSE 70; RESP 20; TEMP 36.4; O2SAT 96
[2020-04-29 06:51] VITALS: BP 135/86; PULSE 81; RESP 18; TEMP 36.9; O2SAT 97
[2020-04-29] MEDS: Diclofenac Sodium Delayed Rel 75 MG TABLET.DR PO (10:06)
[2020-04-29] MEDS: 0.9 % Sodium Chloride Flush 3 ML SYRINGE IVFLUSH (10:07)
[2020-04-29] MEDS: Cyclobenzaprine HCl 10 MG TABLET PO (10:07)
[2020-04-29] MEDS: methylPREDNISolone Sod Succ 1,000 MG in 0.9 % Sodium Chloride 100 ML 116 MG IV (10:08)
[2020-04-29 11:07] VITALS: BP 141/86; PULSE 75; RESP 18; TEMP 37.1; O2SAT 99
--- NOTE | 2020-04-29 11:14 | MHC.CM.PN ---
PER PHYSICIAN ROUNDS, PATIENT IS SCHEDULED FOR MRI TODAY HE WILL DISCHARGE HOME FOLLOWING WITH NO NEED FOR SERVICES. RN AWARE OF PLAN.
--- NOTE | 2020-04-29 14:30 | P.DS_ITS ---
DS: Providers Provider Date of admission: 04/25/20 18:55 Primary care physician: Nonstaff Physician Consults: 04/25/20 18:55 Consult to Neurology Routine Consulting Provider: [facility] Reason for consultation: right side weakness; recently diagnosed with MS Has provider been notified: No DS: Diagnosis Discharge Diagnosis (1) Multiple sclerosis of cord: Status: Acute (2) Weakness: Status: Acute DS: Medications Discharge Medications Home Medications: Home Medications Medication Instructions Recorded Confirmed cyclobenzaprine 10 mg PO BID 04/25/20 04/25/20 diclofenac sodium 75 mg PO BID 04/25/20 04/25/20 DS: Summary Hospital Course Hospital Course: HPI: This is a 29-year-old male who was recently diagnosed with multiple sclerosis who presents to the emergency department with right-sided weakness. He was admitted from April 12 to April 16 during which time he was diagnosed with multiple sclerosis and treated with burst of high dose steroids. He was seen the day after discharge in the neurology office with plan start an immune modulator therapy. Unfortunately he is waiting for prior authorization has not yet been able to begin this medication. he began having weakness of his right upper and lower extremity starting yesterday. He called the Neurology office who prescribed prednisone which she began taking yesterday. His weakness continued and he also reports some slurred speech which prompted him to come to the emergency department. Brain CT was unremarkable. The emergency room provider discussed the case with the neurologist who recommended restarting high-dose steroids Hospital Course: Patient was again treated with 5 days of high-dose Solu-Medrol, 1 g every 24 hours. He did have improvement in his R hemiplegia but PETRONA persisted. Neurology was again consulted and have started the approval process for outpatient Ocrevus infusions. He will be discharged home with f/u with Neurology clinic. Time Spent with Patient Time attestation: Total time spent providing and/or coordinating discharge services: Physical Exam Vital Signs: Vital Signs: Last Vital Signs Temp 98.8 F 04/29/20 11:07 Pulse 75 04/29/20 11:07 Resp 18 04/29/20 11:07 BP 141/86 H 04/29/20 11:07 Pulse Ox 99 04/29/20 11:07 Body Mass Index 32.5 General - no acute distress, appears comfortable Cardiovascular - regular rate and rhythm, S1-S2 Lungs - normal respiratory effort, clear to auscultation bilaterally, no wheezing Abdomen - soft, nontender, no rebound or guarding Extremities - no edema bilaterally Neuro - awake and alert, R hemiplegia with significant improvement -- strength 4 to 4+/5; L eye PETRONA DS: Data Data Completed and Pending Labs on day of discharge: Laboratory Last Values WBC 16.6 X10*3/uL (4.8-10.8) H 04/26/20 05:55 RBC 4.83 X10*6/uL (4.60-5.80) 04/26/20 05:55 Hgb 14.7 g/dl (14.0-18.0) 04/26/20 05:55 Hct 44.4 % (42-52) 04/26/20 05:55 MCV 91.9 fL (80-98) 04/26/20 05:55 MCH 30.4 pg (27.0-33.0) 04/26/20 05:55 MCHC 33.1 g/dl (31.0-36.0) 04/26/20 05:55 RDW 12.9 % (11.0-16.0) 04/26/20 05:55 Plt Count 192 X10*3/uL (160-400) 04/26/20 05:55 MPV 11.1 fL (9.4-12.4) 04/26/20 05:55 Immature Gran % (Auto) 0.7 % (0.0-0.4) H 04/26/20 05:55 Neut % (Auto) 87.1 % (45-73) H 04/26/20 05:55 Lymph % (Auto) 10.7 % (20-40) L 04/26/20 05:55 [place] % (Auto) 1.4 % (2-11) L 04/26/20 05:55 Eos % (Auto) 0.0 % (0-4) 04/26/20 05:55 Baso % (Auto) 0.1 % (0-2) 04/26/20 05:55 Lymph # (Auto) 1.8 X10*3/uL (1.2-4.9) 04/26/20 05:55 [place] # (Auto) 0.2 X10*3/uL (0.1-1.2) 04/26/20 05:55 Eos # (Auto) 0.0 X10*3/uL (0.0-0.4) 04/26/20 05:55 Baso # (Auto) 0.0 X10*3/uL (0.0-0.2) 04/26/20 05:55 Abs Immat Gran (auto) 0.11 X10*3/uL (0.00-0.03) H 04/26/20 05:55 Absolute Neuts (auto) 14.5 X10*3/uL (2.0-8.3) H 04/26/20 05:55 Absolute Nucleated RBC 0.000 X10*3/uL (0.0-0.012) 04/26/20 05:55 Nucleated RBC % (auto) 0.0 /100WBC (0.0-0.2) 04/26/20 05:55 ESR 7 MM/HR (0-15) 04/25/20 17:11 Sodium 135 mmol/L (135-145) 04/26/20 06:28 Potassium 5.0 mmol/l (3.3-5.1) 04/26/20 06:28 Chloride 102 mmol/L (96-108) 04/26/20 06:28 Carbon Dioxide 21 mmol/L (22-29) L 04/26/20 06:28 Anion Gap 17 (12-20) 04/26/20 06:28 BUN 28 mg/dL (9-16) H 04/26/20 06:28 Creatinine 1.05 mg/dL (0.5-1.4) 04/26/20 06:28 Estim Creat Clear Calc 121.9 04/26/20 06:28 Estimated GFR > 60 04/26/20 06:28 Random Glucose 118 mg/dL (60-115) H D 04/26/20 06:28 Calcium 9.5 mg/dL (8.4-10.2) 04/26/20 06:28 C-Reactive Protein 0.40 mg/dL (< or = 0.50) 04/25/20 21:23 COVID-19 (CRISTOPHER) Negative (Negative) 04/25/20 17:11 COVID-19 Clin Com See Note 04/25/20 17:11 Discharge Plan Discharge Patient Disposition: Home, Self-Care Referrals: Physician,Nonstaff [Primary Care Provider] - Discharge Medications: Continued cyclobenzaprine 10 mg Tablet 10 mg PO BID RF: 0 diclofenac sodium 75 mg Tablet,Delayed Release (Dr/Ec) 75 mg PO BID RF: 0 Discontinued prednisone 20 mg Tablet 0 mg PO DAILY RF: 0 Discharge Orders: Discharge Order (Routine); Ordered 04/29/20 Ordered By: Gary Russell Diet: advance to usual diet Activity on Discharge: As tolerated Visit Report Forms: Patient Portal Discharge page Care Plan Goals: To stay healthy and out of the hospital. Health Concerns: Multiple sclerosis Plan of Treatment: You have completed 5 days of high-dose steroids. Please follow-up with the neurology clinic to set up further treatment.
== END 2020-04-29 16:35 | disposition home or self-care (01) | DRG 60 ==
LOC: HO.ED 18:04 → HO.IMC 23:27 → HO.S3 04-26 18:45
PROVIDERS: Physician Assistant Medical; Admitting Provider Family Medicine; Emergency Provider Emergency Medicine; Visit Provider Family Medicine
DX: G35 Multiple sclerosis (principal); D72.829 Elevated white blood cell count, unspecified; M25.551 Pain in right hip; H51.22 Internuclear ophthalmoplegia, left eye; G81.91 Hemiplegia, unspecified affecting right dominant side; Z79.899 Other long term (current) drug therapy
CPT/HCPCS: 36415; 70450; 70553; 73502; 80048; 85025; 85652; 86140; 87635; 96365; 96366; 99285; A9585; J1650; J2930